=== PATIENT | male | born 1985 | race Caucasian/White ===

== ENCOUNTER 2016-08-26 01:40 | Emergency (ER) | payer SELFPAY ==
[~2016-08-26] VITALS: Ht 177.8 cm; Wt 54.4 kg
[~2016-08-26 01:40] MED LIST: BENA40TA7; HYDR-2598; METH500T6; MON10T
[2016-08-26] MEDS: LORazepam 2MG/ML-1ML VIAL IV ONE (02:30)
[2016-08-26 02:40] LABS: Basophils # (auto) 0 uL; Basophils % (auto) 0.4 % (0.0-2.0); Eosinophils # (auto) 0 uL; Hematocrit 39.9 % (41.0-53.0); Hemoglobin 13.4 g/dL (13.5-17.5); Lymphocytes # (auto) 1.9 uL; Lymphocytes % (auto) 16.5 % (10.0-50.0); Mean Corpuscular Hemoglobin 31.7 pg (28.0-32.0); Mean Corpuscular Hgb Conc. 33.6 g/dL (32.0-36.0); Mean Corpuscular Volume 94.5 fL (80.0-100.0); Mean Platelet Volume 7.3 fL (7.4-10.4); Monocytes # (auto) 0.9 uL; Neutrophils # (auto) 8.9 uL; Neutrophils % (auto) 75.1 % (37.0-80.0); Platelet Count (auto) 479 10^3/uL (140-450); Red Cell Distribution Width 13.5 % (11.6-16.0); White Blood Cell 11.8 10^3/uL (4.4-10.8)
[2016-08-26 02:46] LABS: Urine Bilirubin Negative (Negative); Urine Blood Negative /uL (Negative); Urine Color Yellow (Yellow); Urine Glucose Normal (Normal); Urine Hyaline Cast FEW /lpf (0 - 2); Urine Ketone Negative (Negative); Urine Mucus FEW (None Seen); Urine Nitrite Negative (Negative); Urine RBC 1 /hpf (0 - 3); Urine Squamous Epithelial Cell FEW /hpf (<5); Urine Urobilinogen Normal (Negative); Urine pH 5.5 (5.0-8.0)
[2016-08-26 02:57] LABS: Acetaminophen < 2.0 ug/mL (10-30); Albumin 3.7 g/dL (3.4-5.0); Anion Gap 14 (5-15); Blood Urea Nitrogen 10 mg/dL (7-18); Calcium 8.1 mg/dL (8.5-10.1); Carbon Dioxide 24 mmol/L (21-32); Chloride 105 mmol/L (98-107); Glucose 103 mg/dL (74-106); Potassium 3.1 mmol/L (3.5-5.1); Salicylate < 1.7 mg/dL (2.8-20.0); Sodium 143 mmol/L (136-145)
[2016-08-26 02:59] LABS: Aspartate Aminotransferase 36 U/L (15-37); BUN/Creatinine Ratio 10.3; GFR African American 115 mL/min; GFR Non-African American 95 mL/min
[2016-08-26] MEDS: SODIUM CHLORIDE 0.9% 1,000 ML IV ONE (02:59)
[2016-08-26 03:01] LABS: Alkaline Phosphatase 90 U/L (45-117); Bilirubin, Total 0.5 mg/dL (0.2-1.0); Total Protein 7.1 g/dL (6.4-8.2)
[2016-08-26] MEDS: QUEtiapine FUMARATE 100 MG TAB PO SCH (06:02)
[2016-08-26 06:35] VITALS: BP 142/72
[2016-08-26] MEDS: POTASSIUM CHL 10% (20 MEQ/15ML) ORAL SOLN PO ONE (10:13)
== END 2016-08-26 10:32 | disposition home or self-care (01) ==
LOC: ER 01:40 → EDBD 01:40 → ER 10:30
DX: F32.9 Major depressive disorder, single episode, unspecified (principal); F19.10 Other psychoactive substance abuse, uncomplicated; N39.0 Urinary tract infection, site not specified; F15.10 Other stimulant abuse, uncomplicated; E87.6 Hypokalemia; J44.9 Chronic obstructive pulmonary disease, unspecified; I10 Essential (primary) hypertension; R53.1 Weakness; G89.29 Other chronic pain; M54.9 Dorsalgia, unspecified; F17.210 Nicotine dependence, cigarettes, uncomplicated; F12.10 Cannabis abuse, uncomplicated
CPT/HCPCS: 36415; 80053; 80307; 80320; 80329; 81001; 85025; 93005; 96361; 96374; 99285; J2060; J7030

== ENCOUNTER 2016-08-26 17:12 | Emergency (ER) | payer SELFPAY ==
[~2016-08-26] VITALS: Ht 182.9 cm; Wt 77.1 kg
[2016-08-26 17:20] VITALS: BP 152/105
[2016-08-26] MEDS: LORazepam 0.5 MG TAB PO ONE (21:30)
[2016-08-26] MEDS: cloNIDine HCL 0.1 MG TAB PO ONE (21:31)
== END 2016-08-26 21:50 | disposition home or self-care (01) ==
LOC: EDBD 17:12 → ER 17:14
DX: F41.9 Anxiety disorder, unspecified (principal); J44.9 Chronic obstructive pulmonary disease, unspecified; I10 Essential (primary) hypertension; F17.210 Nicotine dependence, cigarettes, uncomplicated; F12.10 Cannabis abuse, uncomplicated; F15.10 Other stimulant abuse, uncomplicated

== ENCOUNTER 2018-09-20 20:09 | Emergency (ER) | payer MEDICAID ==
[~2018-09-20] VITALS: Ht 177.8 cm; Wt 73.1 kg
[2018-09-20] MEDS ORDERED: SODIUM CHLORIDE 0.9% 500 ML IV ONE (20:44)
[2018-09-20] MEDS ORDERED: KETOROLAC TROMETH 15 mg/ml 1ML VL IV ONE (20:45)
[2018-09-20] MEDS ORDERED: LORazepam 2MG/ML-1ML VIAL IV ONE (21:15)
[2018-09-20 21:28] LABS: Albumin 3.8 g/dL (3.4-5.0); Calcium 8.4 mg/dL (8.5-10.1); Potassium 3.3 mmol/L (3.5-5.1)
[2018-09-20 21:31] LABS: Acetaminophen < 2.0 ug/mL (10-30); Salicylate < 1.7 mg/dL (2.8-20.0)
[2018-09-20 21:32] LABS: BUN/Creatinine Ratio 11.4; Bilirubin, Total 0.2 mg/dL (0.2-1.0); Total Protein 6.6 g/dL (6.4-8.2)
[2018-09-20 21:33] LABS: Basophils # (auto) 0.1 uL; Basophils % (auto) 1.1 % (0.0-2.0); Eosinophils # (auto) 0.1 uL; Eosinophils % (auto) 2.4 % (0.0-7.0); Hematocrit 40.3 % (41.0-53.0); Hemoglobin 13.5 g/dL (13.5-17.5); Lymphocytes # (auto) 2.3 uL; Lymphocytes % (auto) 36.8 % (10.0-50.0); Mean Corpuscular Hemoglobin 31.4 pg (28.0-32.0); Mean Corpuscular Hgb Conc. 33.5 g/dL (32.0-36.0); Mean Corpuscular Volume 93.7 fL (80.0-100.0); Monocytes # (auto) 0.4 uL; Neutrophils # (auto) 3.4 uL; Neutrophils % (auto) 53.7 % (37.0-80.0); Nucleated Red Blood Cells % 0.1 %; Platelet Count (auto) 307 10^3/uL (140-450); Red Cell Distribution Width 13.4 % (11.8-14.3); White Blood Cell 6.2 10^3/uL (4.4-10.8)
[2018-09-20 22:19] LABS: Urine Bacteria NONE SEEN /hpf (None Seen); Urine Blood Negative /uL (Negative); Urine Specific Gravity 1.005 (1.001-1.035); Urine WBC 1 /hpf (0 - 3)
[2018-09-20 22:49] LABS: Amphetamine Screen, Urine NEGATIVE (NEGATIVE); Barbiturate Scree,Urine NEGATIVE (NEGATIVE); Benzodiazephine Screen, Urine NEGATIVE (NEGATIVE); Cannabinoid Screen, Urine NEGATIVE (NEGATIVE); Cocaine Screen, Urine NEGATIVE (NEGATIVE); Opiate Scree,Urine NEGATIVE (NEGATIVE); Phencyclidine Screen, Urine NEGATIVE (NEGATIVE)
[2018-09-21] MEDS ORDERED: LORazepam 2MG/ML-1ML VIAL IV ONE ×3 (01:00→13:00)
[2018-09-21] MEDS ORDERED: POTASSIUM CHL 10 Meq TABLET PO ONE (01:00)
[2018-09-21] MEDS ORDERED: OLANZapine 5 MG TAB PO ONE (07:30)
[2018-09-21] MEDS ORDERED: SODIUM CHLORIDE 0.9% 1,000 ML IV ONE (07:30)
[2018-09-21 12:00] VITALS: BP 135/92
[2018-09-21] MEDS ORDERED: QUEtiapine FUMARATE 25 MG TAB PO ONE (13:00)
== END 2018-09-21 15:12 | disposition left against medical advice (07) ==
LOC: ER 20:14
DX: R45.851 Suicidal ideations (principal); F41.9 Anxiety disorder, unspecified; F20.0 Paranoid schizophrenia; F32.9 Major depressive disorder, single episode, unspecified; M54.5 Low back pain; G89.29 Other chronic pain; J44.9 Chronic obstructive pulmonary disease, unspecified; I10 Essential (primary) hypertension; F17.210 Nicotine dependence, cigarettes, uncomplicated; F12.10 Cannabis abuse, uncomplicated; F15.10 Other stimulant abuse, uncomplicated
CPT/HCPCS: 36415; 71046; 72100; 80053; 80307; 80320; 80329; 81001; 84484; 85025; 93005; 94761; 96374; 96375; 96376; 99284; J1885; J2060; J7030; J7040

== ENCOUNTER 2018-11-03 21:16 | Emergency (ER) | payer MEDICAID ==
[~2018-11-03] VITALS: Ht 180.3 cm; Wt 77.1 kg
[2018-11-03 22:02] LABS: Basophils # (auto) 0.1 uL; Basophils % (auto) 1.1 % (0.0-2.0); Eosinophils # (auto) 0.1 uL; Eosinophils % (auto) 0.7 % (0.0-7.0); Hematocrit 46.2 % (41.0-53.0); Hemoglobin 15.7 g/dL (13.5-17.5); Lymphocytes # (auto) 2.6 uL; Lymphocytes % (auto) 32.8 % (10.0-50.0); Mean Corpuscular Hemoglobin 31.4 pg (28.0-32.0); Mean Corpuscular Hgb Conc. 33.9 g/dL (32.0-36.0); Mean Corpuscular Volume 92.6 fL (80.0-100.0); Monocytes # (auto) 0.8 uL; Monocytes % (auto) 9.9 % (0.0-12.0); Neutrophils # (auto) 4.4 uL; Neutrophils % (auto) 55.5 % (37.0-80.0); Nucleated Red Blood Cells % 0.1 %; Platelet Count (auto) 356 10^3/uL (140-450); Red Blood Cells 4.99 10^6/uL (4.5-5.90)
[2018-11-03 22:20] LABS: Albumin 4.1 g/dL (3.4-5.0); Calcium 8.8 mg/dL (8.5-10.1); Potassium 3.3 mmol/L (3.5-5.1)
[2018-11-03 22:24] LABS: BUN/Creatinine Ratio 11.6; Bilirubin, Total 0.4 mg/dL (0.2-1.0); Total Protein 7.4 g/dL (6.4-8.2)
[2018-11-04] MEDS ORDERED: LORazepam 0.5 MG TAB PO ONE (04:30)
[2018-11-04] MEDS ORDERED: ONDANSETRON HCL 4 MG/2 ML VIAL IV ONE (04:30)
[2018-11-04] MEDS ORDERED: SODIUM CHLORIDE 0.9% 1,000 ML IV ONE (04:30)
[2018-11-04] MEDS ORDERED: IOHEXOL 300 MG/ML 100ML BOTTLE IJ ONE (04:35)
[2018-11-04 05:29] LABS: Amylase 45 U/L (25-115); Blood Alcohol < 3.0 mg/dL (0-5); Lipase 116 U/L (73-393)
[2018-11-04 05:40] VITALS: BP 126/83
== END 2018-11-04 07:02 | disposition home or self-care (01) ==
LOC: EDBD 21:16 → ER 21:20
DX: I88.0 Nonspecific mesenteric lymphadenitis (principal); R10.9 Unspecified abdominal pain; R11.2 Nausea with vomiting, unspecified; F43.22 Adjustment disorder with anxiety; F20.89 Other schizophrenia; J44.9 Chronic obstructive pulmonary disease, unspecified; I10 Essential (primary) hypertension; F17.210 Nicotine dependence, cigarettes, uncomplicated; Z79.899 Other long term (current) drug therapy
CPT/HCPCS: 36415; 74177; 80053; 80320; 82150; 83605; 83690; 85025; 96361; 96374; 99284; J2405; J7030; Q9967

== ENCOUNTER 2018-11-18 15:48 | Emergency (ER) | payer MEDICAID ==
[~2018-11-18] VITALS: Ht 180.3 cm; Wt 70.3 kg
[2018-11-18 16:41] LABS: Basophils # (auto) 0.1 uL; Basophils % (auto) 0.8 % (0.0-2.0); Eosinophils # (auto) 0 uL; Eosinophils % (auto) 0.7 % (0.0-7.0); Hematocrit 45.7 % (41.0-53.0); Hemoglobin 15.6 g/dL (13.5-17.5); Lymphocytes # (auto) 2.8 uL; Lymphocytes % (auto) 40.1 % (10.0-50.0); Mean Corpuscular Hemoglobin 31.7 pg (28.0-32.0); Mean Corpuscular Hgb Conc. 34.1 g/dL (32.0-36.0); Monocytes # (auto) 0.3 uL; Monocytes % (auto) 4.3 % (0.0-12.0); Neutrophils # (auto) 3.8 uL; Neutrophils % (auto) 54.1 % (37.0-80.0); Nucleated Red Blood Cells % 0.1 %; Platelet Count (auto) 390 10^3/uL (140-450); Red Blood Cells 4.92 10^6/uL (4.5-5.90)
[2018-11-18 16:59] LABS: Acetaminophen < 2.0 ug/mL (10-30); Salicylate < 1.7 mg/dL (2.8-20.0)
[2018-11-18] MEDS ORDERED: SODIUM CHLORIDE 0.9% 1,000 ML IV ONE ×3 (16:59→22:00)
[2018-11-18] MEDS ORDERED: THIAMINE 100mg/ml INJ (200mg/2ml VIAL) IV ONE (17:00)
[2018-11-18 17:01] LABS: Alkaline Phosphatase 74 U/L (45-117); Aspartate Aminotransferase 14 U/L (15-37); Bilirubin, Total 0.3 mg/dL (0.2-1.0); GFR African American 116 mL/min; GFR Non-African American 96 mL/min; Total Protein 7.2 g/dL (6.4-8.2)
[2018-11-18 17:02] LABS: Anion Gap 12 (5-15); Carbon Dioxide 19 mmol/L (21-32); Chloride 112 mmol/L (98-107); Glucose 97 mg/dL (74-106); Potassium 3.7 mmol/L (3.5-5.1); Sodium 143 mmol/L (136-145)
[2018-11-18 17:03] LABS: Alanine Aminotransferase 23 U/L (16-61); Albumin 4.1 g/dL (3.4-5.0); BUN/Creatinine Ratio 7.4; Blood Urea Nitrogen 7 mg/dL (7-18); Calcium 8.4 mg/dL (8.5-10.1); Magnesium 2.4 mg/dL (1.6-2.6)
[2018-11-18] MEDS ORDERED: LORazepam 2MG/ML-1ML VIAL IV ONE (20:00)
[2018-11-19 00:48] LABS: Urine Bacteria NONE SEEN /hpf (None Seen); Urine Blood Negative /uL (Negative); Urine Specific Gravity 1.008 (1.001-1.035); Urine WBC 1 /hpf (0 - 3)
[2018-11-19 00:50] LABS: Amphetamine Screen, Urine NEGATIVE (NEGATIVE); Barbiturate Scree,Urine NEGATIVE (NEGATIVE); Benzodiazephine Screen, Urine NEGATIVE (NEGATIVE); Cannabinoid Screen, Urine NEGATIVE (NEGATIVE); Cocaine Screen, Urine NEGATIVE (NEGATIVE); Opiate Scree,Urine NEGATIVE (NEGATIVE); Phencyclidine Screen, Urine NEGATIVE (NEGATIVE)
[2018-11-19] MEDS ORDERED: OLANZapine 5 MG TAB PO ONE (10:15)
[2018-11-19] MEDS ORDERED: ALPRAZolam 0.5 MG TAB PO ONE (10:15)
[2018-11-19] MEDS ORDERED: BENAZEPRIL HCL 10 MG TAB PO ONE (11:00)
[2018-11-19] MEDS ORDERED: HYDROcodone-ACET 5/325MG TAB PO ONE (15:30)
[2018-11-20] MEDS ORDERED: ALPRAZolam 0.5 MG TAB PO SCH (10:00)
[2018-11-20] MEDS: OLANZapine 5 MG TAB PO SCH ×2 (10:23→22:24)
[2018-11-20] MEDS: ALPRAZolam 0.5 MG TAB PO PRN (18:01)
[2018-11-21] MEDS ORDERED: ACETAMINOPHEN 325 MG TAB PO ONE (08:00)
[2018-11-21] MEDS: ALPRAZolam 0.5 MG TAB PO PRN ×2 (08:16→15:54)
[2018-11-21] MEDS: OLANZapine 5 MG TAB PO SCH ×2 (10:09→21:07)
[2018-11-21] MEDS ORDERED: HYDROcodone-ACET 5/325MG TAB PO ONE (21:00)
[2018-11-22 08:12] VITALS: BP 118/64
== END 2018-11-22 08:54 | disposition home or self-care (01) ==
LOC: ER 15:48 → EDBD 15:48 → ER 11-22 08:54
DX: F10.129 Alcohol abuse with intoxication, unspecified (principal); F17.210 Nicotine dependence, cigarettes, uncomplicated; F12.10 Cannabis abuse, uncomplicated; F15.10 Other stimulant abuse, uncomplicated; J44.9 Chronic obstructive pulmonary disease, unspecified; I10 Essential (primary) hypertension; Y90.9 Presence of alcohol in blood, level not specified
CPT/HCPCS: 36415; 80053; 80307; 80320; 80329; 81001; 83735; 85025; 93005; 96374; 96375; 99284; J2060; J3411; J7030

== ENCOUNTER 2019-11-25 13:04 | Emergency (ER) | payer MEDICAID ==
[~2019-11-25] VITALS: Ht 182.9 cm; Wt 72.6 kg
[~2019-11-25 13:04] MED LIST changes: +METH500T22; -METH500T6
[2019-11-25 15:26] LABS: Basophils # (auto) 0.1 10 ^3/uL (0-0.2); Basophils % (auto) 0.9 % (0.0-2.0); Eosinophils # (auto) 0 10 ^3/uL (0-0.8); Eosinophils % (auto) 0.2 % (0.0-7.0); Hematocrit 47.5 % (41.0-53.0); Hemoglobin 15.9 g/dL (13.5-17.5); Lymphocytes # (auto) 2.2 10 ^3/uL (0.4-5.4); Lymphocytes % (auto) 28.3 % (10.0-50.0); Mean Corpuscular Hemoglobin 32.5 pg (28.0-32.0); Mean Corpuscular Hgb Conc. 33.5 g/dL (32.0-36.0); Mean Corpuscular Volume 97.1 fL (80.0-100.0); Monocytes # (auto) 0.6 10 ^3/uL (0-1.3); Monocytes % (auto) 7.2 % (0.0-12.0); Neutrophils # (auto) 4.9 10 ^3/uL (1.6-8.6); Neutrophils % (auto) 63.4 % (37.0-80.0); Nucleated Red Blood Cells % 0.1 %; Platelet Count (auto) 324 10^3/uL (140-450); Red Cell Distribution Width 13.8 % (11.8-14.3); White Blood Cell 7.7 10^3/uL (4.4-10.8)
[2019-11-25 15:41] LABS: Albumin 4.1 g/dL (3.4-5.0); Anion Gap 11 (5-15); Blood Urea Nitrogen 9 mg/dL (7-18); Calcium 8.7 mg/dL (8.5-10.1); Carbon Dioxide 20 mmol/L (21-32); Chloride 108 mmol/L (98-107); Glucose 80 mg/dL (74-106); Magnesium 2.2 mg/dL (1.6-2.6); Potassium 3.8 mmol/L (3.5-5.1); Sodium 139 mmol/L (136-145)
[2019-11-25 15:42] LABS: Acetaminophen < 2.0 ug/mL (10-30); Salicylate < 1.7 mg/dL (2.8-20.0)
[2019-11-25 15:48] LABS: Alanine Aminotransferase 37 U/L (16-61); Alkaline Phosphatase 70 U/L (45-117); Aspartate Aminotransferase 16 U/L (15-37); BUN/Creatinine Ratio 8.7; Bilirubin, Total 0.4 mg/dL (0.2-1.0); GFR African American 104 mL/min; GFR Non-African American 86 mL/min; Total Protein 7.1 g/dL (6.4-8.2)
[2019-11-25] MEDS ORDERED: LORazepam 0.5 MG TAB PO ONE (16:00)
[2019-11-25 16:27] LABS: Amphetamine Screen, Urine NEGATIVE (NEGATIVE); Barbiturate Scree,Urine NEGATIVE (NEGATIVE); Benzodiazephine Screen, Urine NEGATIVE (NEGATIVE); Cannabinoid Screen, Urine NEGATIVE (NEGATIVE); Cocaine Screen, Urine NEGATIVE (NEGATIVE); Opiate Scree,Urine NEGATIVE (NEGATIVE); Phencyclidine Screen, Urine NEGATIVE (NEGATIVE)
[2019-11-25 16:36] LABS: Urine Bacteria NONE SEEN /hpf (None Seen); Urine Blood Negative /uL (Negative); Urine Mucus FEW (None Seen); Urine Specific Gravity 1.013 (1.001-1.035); Urine WBC 3 /hpf (0 - 3)
[2019-11-26] MEDS ORDERED: LORazepam 0.5 MG TAB PO ONE ×2 (01:45→09:30)
[2019-11-26] MEDS ORDERED: LORazepam 0.5 MG TAB ONE ×2 (01:56→08:48)
[2019-11-26] MEDS ORDERED: IBUPROFEN 800 MG TAB PO ONE (13:15)
[2019-11-26] MEDS ORDERED: LORazepam 0.5 MG TAB PO SCH ×2 (14:00→22:00)
[2019-11-26 15:17] VITALS: BP 127/72
== END 2019-11-26 11:12 | disposition short-term general hospital (02) ==
LOC: EDBD 13:04 → ER 13:04
DX: R45.851 Suicidal ideations (principal); F20.0 Paranoid schizophrenia; Z20.828 Contact with and (suspected) exposure to other viral communicable diseases
CPT/HCPCS: 36415; 71046; 80053; 80307; 80320; 80329; 81001; 83735; 84443; 84484; 85025; 87426; 93005

== ENCOUNTER 2019-12-01 19:37 | Emergency (ER) | payer MEDICAID ==
[~2019-12-01] VITALS: Ht 165.1 cm; Wt 63.5 kg
[2019-12-01 20:48] LABS: Basophils # (auto) 0.1 10 ^3/uL (0-0.2); Basophils % (auto) 1.2 % (0.0-2.0); Eosinophils # (auto) 0.2 10 ^3/uL (0-0.8); Hematocrit 45.8 % (41.0-53.0); Hemoglobin 15.8 g/dL (13.5-17.5); Lymphocytes # (auto) 4.5 10 ^3/uL (0.4-5.4); Lymphocytes % (auto) 52.3 % (10.0-50.0); Mean Corpuscular Hemoglobin 33.2 pg (28.0-32.0); Mean Corpuscular Hgb Conc. 34.5 g/dL (32.0-36.0); Mean Corpuscular Volume 96.4 fL (80.0-100.0); Monocytes # (auto) 0.6 10 ^3/uL (0-1.3); Monocytes % (auto) 7.4 % (0.0-12.0); Neutrophils # (auto) 3.2 10 ^3/uL (1.6-8.6); Neutrophils % (auto) 37.1 % (37.0-80.0); Nucleated Red Blood Cells % 0.1 %; Platelet Count (auto) 401 10^3/uL (140-450); Red Blood Cells 4.75 10^6/uL (4.5-5.90); White Blood Cell 8.6 10^3/uL (4.4-10.8)
[2019-12-01 21:00] LABS: Urine Bacteria NONE SEEN /hpf (None Seen); Urine Blood Negative /uL (Negative); Urine WBC <1 /hpf (0 - 3)
[2019-12-01 21:03] LABS: Albumin 4.1 g/dL (3.4-5.0); Calcium 8.6 mg/dL (8.5-10.1); Potassium 3.1 mmol/L (3.5-5.1)
[2019-12-01 21:05] LABS: Alcohol, Urine < 3.0 mg/dL (0-10); Amphetamine Screen, Urine NEGATIVE (NEGATIVE); Barbiturate Scree,Urine NEGATIVE (NEGATIVE); Benzodiazephine Screen, Urine POSITIVE (NEGATIVE); Cannabinoid Screen, Urine NEGATIVE (NEGATIVE); Cocaine Screen, Urine NEGATIVE (NEGATIVE); Opiate Scree,Urine POSITIVE (NEGATIVE); Phencyclidine Screen, Urine NEGATIVE (NEGATIVE)
[2019-12-01 21:06] LABS: BUN/Creatinine Ratio 6.6; Bilirubin, Total 0.4 mg/dL (0.2-1.0); Total Protein 6.9 g/dL (6.4-8.2)
[2019-12-01 21:07] LABS: Acetaminophen 7.1 ug/mL (10-30); Salicylate < 1.7 mg/dL (2.8-20.0)
[2019-12-01] MEDS ORDERED: LORazepam 0.5 MG TAB PO ONE (21:30)
[2019-12-02] MEDS ORDERED: LORazepam 0.5 MG TAB PO ONE (09:45)
[2019-12-02] MEDS ORDERED: POTASSIUM EFFERVESENT TAB 25 MEQ PO ONE (17:45)
[2019-12-03] MEDS ORDERED: LORazepam 0.5 MG TAB PO ONE (08:30)
[2019-12-03] MEDS ORDERED: CARISOPRODOL 350 MG TAB PO PRN (09:15)
[2019-12-03] MEDS: SERTRALINE HCL 50 MG TAB PO SCH (09:29)
[2019-12-03] MEDS: OLANZapine 5 MG TAB PO SCH (09:29)
[2019-12-03] MEDS: traZODone HCL 50 MG TAB PO SCH (22:52)
[2019-12-04] MEDS: SERTRALINE HCL 50 MG TAB PO SCH (11:00)
[2019-12-04] MEDS: OLANZapine 5 MG TAB PO SCH (11:00)
[2019-12-04 19:18] VITALS: BP 135/77
[2019-12-04] MEDS: traZODone HCL 50 MG TAB PO SCH (21:30)
== END 2019-12-04 23:31 | disposition home or self-care (01) ==
LOC: EDBD 19:37 → ER 19:41
DX: R45.851 Suicidal ideations (principal); F20.0 Paranoid schizophrenia; I10 Essential (primary) hypertension; F17.210 Nicotine dependence, cigarettes, uncomplicated; F12.10 Cannabis abuse, uncomplicated; Z59.0 Homelessness; Z20.828 Contact with and (suspected) exposure to other viral communicable diseases
CPT/HCPCS: 36415; 80053; 80307; 80320; 80329; 81001; 85025; 87426; 99285; C9803; U0003

== ENCOUNTER 2019-12-16 20:31 | Emergency (ER) | payer MEDICAID ==
[~2019-12-16] VITALS: Ht 180.3 cm; Wt 77.1 kg
[2019-12-17 01:10] VITALS: BP 129/89
[2019-12-17 01:31] LABS: Basophils # (auto) 0.1 10 ^3/uL (0-0.2); Basophils % (auto) 0.8 % (0.0-2.0); Eosinophils # (auto) 0.1 10 ^3/uL (0-0.8); Eosinophils % (auto) 1.3 % (0.0-7.0); Hematocrit 41.7 % (41.0-53.0); Hemoglobin 14.4 g/dL (13.5-17.5); Lymphocytes # (auto) 3.9 10 ^3/uL (0.4-5.4); Lymphocytes % (auto) 43.5 % (10.0-50.0); Mean Corpuscular Hgb Conc. 34.5 g/dL (32.0-36.0); Mean Corpuscular Volume 95.6 fL (80.0-100.0); Monocytes # (auto) 0.6 10 ^3/uL (0-1.3); Monocytes % (auto) 7.2 % (0.0-12.0); Neutrophils # (auto) 4.2 10 ^3/uL (1.6-8.6); Neutrophils % (auto) 47.2 % (37.0-80.0); Platelet Count (auto) 307 10^3/uL (140-450); Red Blood Cells 4.36 10^6/uL (4.5-5.90); White Blood Cell 8.9 10^3/uL (4.4-10.8)
[2019-12-17 01:39] LABS: INR 1.2 (0.9-1.15); Partial Thromboplastin Time 24.9 sec (23.0-31.2)
[2019-12-17 01:44] LABS: Salicylate 2.7 mg/dL (2.8-20.0)
[2019-12-17 01:45] LABS: Alanine Aminotransferase 20 U/L (16-61); Albumin 3.6 g/dL (3.4-5.0); Anion Gap 7 (5-15); Aspartate Aminotransferase 8 U/L (15-37); BUN/Creatinine Ratio 5.7; Blood Urea Nitrogen 5 mg/dL (7-18); Calcium 8.6 mg/dL (8.5-10.1); Carbon Dioxide 25 mmol/L (21-32); Chloride 109 mmol/L (98-107); GFR African American 126 mL/min; GFR Non-African American 104 mL/min; Glucose 88 mg/dL (74-106); Potassium 3.4 mmol/L (3.5-5.1); Sodium 141 mmol/L (136-145)
[2019-12-17 01:50] LABS: Alkaline Phosphatase 67 U/L (45-117); Bilirubin, Total 0.4 mg/dL (0.2-1.0); Total Protein 6.1 g/dL (6.4-8.2)
[2019-12-17 01:52] LABS: Acetaminophen < 2.0 ug/mL (10-30)
[2019-12-17] MEDS ORDERED: LORazepam 0.5 MG TAB PO ONE (04:00)
== END 2019-12-17 04:29 | disposition home or self-care (01) ==
LOC: ER 20:31 → EDBD 20:31 → ER 12-17 04:29
DX: R07.2 Precordial pain (principal); F41.9 Anxiety disorder, unspecified; F17.210 Nicotine dependence, cigarettes, uncomplicated; I10 Essential (primary) hypertension; F31.9 Bipolar disorder, unspecified; F20.9 Schizophrenia, unspecified; Z79.899 Other long term (current) drug therapy
CPT/HCPCS: 36415; 80053; 80329; 83880; 84484; 85025; 85610; 85730; 93005

== ENCOUNTER 2019-12-23 19:54 | Emergency (ER) | payer MEDICAID ==
[~2019-12-23] VITALS: Ht 185.4 cm; Wt 81.6 kg
[2019-12-23] MEDS ORDERED: KETOROLAC TROMETH 60MG/2ML VIAL IM ONE (22:45)
[2019-12-24 00:01] LABS: Amphetamine Screen, Urine NEGATIVE (NEGATIVE); Barbiturate Scree,Urine NEGATIVE (NEGATIVE); Benzodiazephine Screen, Urine NEGATIVE (NEGATIVE); Cannabinoid Screen, Urine NEGATIVE (NEGATIVE); Cocaine Screen, Urine NEGATIVE (NEGATIVE); Opiate Scree,Urine NEGATIVE (NEGATIVE); Phencyclidine Screen, Urine NEGATIVE (NEGATIVE)
[2019-12-24 00:04] LABS: Alcohol, Urine < 3.0 mg/dL (0-10)
[2019-12-24] MEDS ORDERED: DexAMETHasone SOD PHOS 10MG/1ML VIAL INJ IV ONE (07:45)
[2019-12-24 08:32] VITALS: BP 130/81
== END 2019-12-24 09:41 | disposition home or self-care (01) ==
LOC: ER 19:54
DX: M54.16 Radiculopathy, lumbar region (principal); M79.18 Myalgia, other site; F41.9 Anxiety disorder, unspecified; G89.29 Other chronic pain; J45.909 Unspecified asthma, uncomplicated; I10 Essential (primary) hypertension; F31.9 Bipolar disorder, unspecified; F20.9 Schizophrenia, unspecified; F17.210 Nicotine dependence, cigarettes, uncomplicated; Z76.5 Malingerer [conscious simulation]; Z79.899 Other long term (current) drug therapy; Z59.0 Homelessness
CPT/HCPCS: 72100; 72131; 80307; 96372; 96374; 99285; J1100; J1885

== ENCOUNTER 2020-01-18 22:15 | Emergency (ER) | payer MEDICAID ==
[~2020-01-18] VITALS: Ht 185.4 cm; Wt 83.9 kg
[2020-01-18 22:52] LABS: Basophils # (auto) 0.1 10 ^3/uL (0-0.2); Basophils % (auto) 0.7 % (0.0-2.0); Eosinophils # (auto) 0 10 ^3/uL (0-0.8); Eosinophils % (auto) 0.2 % (0.0-7.0); Hematocrit 44.6 % (41.0-53.0); Hemoglobin 15.1 g/dL (13.5-17.5); Lymphocytes # (auto) 2.4 10 ^3/uL (0.4-5.4); Lymphocytes % (auto) 17.9 % (10.0-50.0); Mean Corpuscular Hemoglobin 32.1 pg (28.0-32.0); Mean Corpuscular Hgb Conc. 33.9 g/dL (32.0-36.0); Mean Corpuscular Volume 94.8 fL (80.0-100.0); Monocytes # (auto) 1.3 10 ^3/uL (0-1.3); Monocytes % (auto) 9.5 % (0.0-12.0); Neutrophils # (auto) 9.5 10 ^3/uL (1.6-8.6); Neutrophils % (auto) 71.7 % (37.0-80.0); Nucleated Red Blood Cells % 0.2 %; Platelet Count (auto) 431 10^3/uL (140-450); Red Blood Cells 4.71 10^6/uL (4.5-5.90); Red Cell Distribution Width 14.3 % (11.8-14.3); White Blood Cell 13.3 10^3/uL (4.4-10.8)
[2020-01-18 23:10] LABS: Alanine Aminotransferase 57 U/L (16-61); Albumin 4.2 g/dL (3.4-5.0); Anion Gap 10 (5-15); Aspartate Aminotransferase 26 U/L (15-37); BUN/Creatinine Ratio 9.9; Blood Urea Nitrogen 10 mg/dL (7-18); Calcium 8.6 mg/dL (8.5-10.1); Carbon Dioxide 22 mmol/L (21-32); Chloride 104 mmol/L (98-107); GFR African American 107 mL/min; GFR Non-African American 89 mL/min; Glucose 108 mg/dL (74-106); INR 1.17 (0.9-1.15); Partial Thromboplastin Time 26.9 sec (23.0-31.2); Potassium 3.1 mmol/L (3.5-5.1); Sodium 136 mmol/L (136-145)
[2020-01-18 23:13] LABS: Alcohol, Urine < 3.0 mg/dL (0-10); Amphetamine Screen, Urine POSITIVE (NEGATIVE); Barbiturate Scree,Urine NEGATIVE (NEGATIVE); Benzodiazephine Screen, Urine NEGATIVE (NEGATIVE); Cocaine Screen, Urine NEGATIVE (NEGATIVE); Opiate Scree,Urine POSITIVE (NEGATIVE); Phencyclidine Screen, Urine NEGATIVE (NEGATIVE)
[2020-01-18 23:15] LABS: Alkaline Phosphatase 84 U/L (45-117); Bilirubin, Total 0.6 mg/dL (0.2-1.0); Total Protein 7.4 g/dL (6.4-8.2)
[2020-01-18 23:20] LABS: Cannabinoid Screen, Urine POSITIVE (NEGATIVE)
[2020-01-18] MEDS ORDERED: LORazepam 0.5 MG TAB PO ONE (23:30)
[2020-01-18 23:31] VITALS: BP 151/103
[2020-01-19] MEDS ORDERED: POTASSIUM EFFERVESENT TAB 25 MEQ PO ONE
== END 2020-01-19 01:04 | disposition home or self-care (01) ==
LOC: EDBD 22:15 → ER 22:15
DX: F41.9 Anxiety disorder, unspecified (principal); F15.90 Other stimulant use, unspecified, uncomplicated; F12.10 Cannabis abuse, uncomplicated; I10 Essential (primary) hypertension; F17.210 Nicotine dependence, cigarettes, uncomplicated
CPT/HCPCS: 36415; 71046; 80053; 80307; 84484; 85025; 85610; 85730; 93005

== ENCOUNTER 2020-04-13 20:02 | Emergency (ER) | payer MEDICAID ==
[~2020-04-13] VITALS: Ht 188 cm; Wt 81.6 kg
[~2020-04-13 20:02] MED LIST changes: -BENA40TA7; +BENA40TA8
[2020-04-13 21:10] LABS: Basophils # (auto) 0 10 ^3/uL (0-0.2); Basophils % (auto) 0.2 % (0.0-2.0); Eosinophils # (auto) 0 10 ^3/uL (0-0.8); Eosinophils % (auto) 0.1 % (0.0-7.0); Hematocrit 43.7 % (41.0-53.0); Hemoglobin 14.9 g/dL (13.5-17.5); Lymphocytes # (auto) 1.6 10 ^3/uL (0.4-5.4); Lymphocytes % (auto) 12.4 % (10.0-50.0); Mean Corpuscular Hemoglobin 32.3 pg (28.0-32.0); Mean Corpuscular Volume 95.1 fL (80.0-100.0); Monocytes # (auto) 1.2 10 ^3/uL (0-1.3); Monocytes % (auto) 9.6 % (0.0-12.0); Neutrophils # (auto) 9.9 10 ^3/uL (1.6-8.6); Neutrophils % (auto) 77.7 % (37.0-80.0); Platelet Count (auto) 320 10^3/uL (140-450); Red Cell Distribution Width 13.4 % (11.8-14.3); White Blood Cell 12.7 10^3/uL (4.4-10.8)
[2020-04-13 21:27] LABS: Blood Urea Nitrogen 10 mg/dL (7-18); Calcium 8.2 mg/dL (8.5-10.1); Chloride 103 mmol/L (98-107); Potassium 3.6 mmol/L (3.5-5.1); Sodium 136 mmol/L (136-145)
[2020-04-13 21:35] LABS: Alanine Aminotransferase 70 U/L (16-61); Albumin 3.7 g/dL (3.4-5.0); Alkaline Phosphatase 71 U/L (45-117); Anion Gap 8 (5-15); Aspartate Aminotransferase 43 U/L (15-37); BUN/Creatinine Ratio 8.8; Bilirubin, Total 0.3 mg/dL (0.2-1.0); Carbon Dioxide 25 mmol/L (21-32); GFR African American 93 mL/min; GFR Non-African American 77 mL/min; Glucose 163 mg/dL (74-106); Total Protein 7.1 g/dL (6.4-8.2)
[2020-04-13] MEDS ORDERED: LORazepam 0.5 MG TAB PO ONE (22:00)
[2020-04-13 22:34] LABS: Urine Bacteria NONE SEEN /hpf (None Seen); Urine Blood Negative /uL (Negative); Urine Specific Gravity 1.012 (1.001-1.035); Urine WBC 1 /hpf (0 - 3)
[2020-04-13 22:51] LABS: Alcohol, Urine < 3.0 mg/dL (0-10); Amphetamine Screen, Urine NEGATIVE (NEGATIVE); Barbiturate Scree,Urine NEGATIVE (NEGATIVE); Benzodiazephine Screen, Urine NEGATIVE (NEGATIVE); Cannabinoid Screen, Urine NEGATIVE (NEGATIVE); Cocaine Screen, Urine NEGATIVE (NEGATIVE); Opiate Scree,Urine POSITIVE (NEGATIVE); Phencyclidine Screen, Urine NEGATIVE (NEGATIVE)
[2020-04-13] MEDS ORDERED: LORazepam 0.5 MG TAB ONE (23:42)
[2020-04-14] MEDS ORDERED: LORazepam 2MG/ML-1ML VIAL IV ONE (01:30)
[2020-04-14] MEDS ORDERED: SODIUM CHLORIDE 0.9% 1,000 ML IV ONE (01:30)
[2020-04-14 03:35] VITALS: BP 149/100
== END 2020-04-14 03:55 | disposition home or self-care (01) ==
LOC: EDBD 20:02 → ER 20:05
DX: F41.0 Panic disorder [episodic paroxysmal anxiety] (principal); F20.9 Schizophrenia, unspecified; R03.0 Elevated blood-pressure reading, without diagnosis of hypertension; F17.210 Nicotine dependence, cigarettes, uncomplicated
CPT/HCPCS: 36415; 71045; 80053; 80307; 81001; 84484; 85025; 93005; 96361; 96374; 99285; J2060

== ENCOUNTER 2022-10-17 11:32 | Emergency (ER) | payer MEDICAID ==
[~2022-10-17] VITALS: Ht 185.4 cm; Wt 82.5 kg
[~2022-10-17 11:32] MED LIST changes: +BENA40TA70; -BENA40TA8; +METH-1181; -METH500T22
[2022-10-17 11:39] VITALS: BP 156/91
[2022-10-17 12:34] LABS: Basophils # (auto) 0 10 ^3/uL (0-0.2); Basophils % (auto) 0.4 % (0.0-2.0); Eosinophils # (auto) 0.1 10 ^3/uL (0-0.8); Hematocrit 45.3 % (41.0-53.0); Hemoglobin 15.2 g/dL (13.5-17.5); Lymphocytes # (auto) 2.2 10 ^3/uL (0.4-5.4); Lymphocytes % (auto) 36.5 % (10.0-50.0); Mean Corpuscular Hemoglobin 32.1 pg (28.0-32.0); Mean Corpuscular Hgb Conc. 33.5 g/dL (32.0-36.0); Mean Corpuscular Volume 95.7 fL (80.0-100.0); Monocytes # (auto) 0.5 10 ^3/uL (0-1.3); Monocytes % (auto) 8.6 % (0.0-12.0); Neutrophils # (auto) 3.3 10 ^3/uL (1.6-8.6); Neutrophils % (auto) 53.5 % (37.0-80.0); Nucleated Red Blood Cells % 0.2 %; Red Blood Cells 4.73 10^6/uL (4.5-5.90); Red Cell Distribution Width 14.1 % (11.8-14.3); White Blood Cell 6.1 10^3/uL (4.4-10.8)
[2022-10-17 12:53] LABS: Albumin 3.7 g/dL (3.4-5.0); Anion Gap 9 (5-15); Blood Alcohol < 3.0 mg/dL (<10); Blood Urea Nitrogen 9 mg/dL (7-18); Calcium 8.8 mg/dL (8.5-10.1); Carbon Dioxide 21 mmol/L (21-32); Chloride 111 mmol/L (98-107); Glucose 201 mg/dL (74-106); Potassium 3.4 mmol/L (3.5-5.1); Sodium 141 mmol/L (136-145)
[2022-10-17 12:54] LABS: Acetaminophen < 2.0 ug/mL (10-30); Salicylate < 1.7 mg/dL (2.8-20.0)
[2022-10-17 12:56] LABS: Alanine Aminotransferase 29 U/L (16-61); Alkaline Phosphatase 66 U/L (45-117); Aspartate Aminotransferase 18 U/L (15-37); Bilirubin, Total 0.4 mg/dL (0.2-1.0); GFR African American 80 mL/min; GFR Non-African American 66 mL/min; Total Protein 6.9 g/dL (6.4-8.2)
[2022-10-17 13:25] LABS: Alcohol, Urine < 3.0 mg/dL (0-10); Amphetamine Screen, Urine NEGATIVE (NEGATIVE); Barbiturate Scree,Urine NEGATIVE (NEGATIVE); Benzodiazephine Screen, Urine NEGATIVE (NEGATIVE); Cannabinoid Screen, Urine NEGATIVE (NEGATIVE); Cocaine Screen, Urine NEGATIVE (NEGATIVE); Opiate Scree,Urine NEGATIVE (NEGATIVE); Phencyclidine Screen, Urine NEGATIVE (NEGATIVE)
[2022-10-17 15:35] VITALS: RESP 18; O2SAT 97
[2022-10-17] MEDS ORDERED: hydrOXYzine 25 MG TAB or CAP PO PRN (16:45)
[2022-10-17 21:59] VITALS: PULSE 82; RESP 20; O2SAT 99
[2022-10-17] MEDS ORDERED: QUEtiapine FUMARATE 25 MG TAB PO SCH (22:00)
== END 2022-10-18 00:12 | disposition left against medical advice (07) ==
LOC: ER 11:32
DX: F20.9 Schizophrenia, unspecified (principal); F29 Unspecified psychosis not due to a substance or known physiological condition; I10 Essential (primary) hypertension; F17.210 Nicotine dependence, cigarettes, uncomplicated; Z59.00 Homelessness unspecified
CPT/HCPCS: 36415; 80053; 80307; 80320; 80329; 85025

== ENCOUNTER 2023-01-31 20:57 | Emergency (ER) | payer MEDICAID ==
[~2023-01-31] VITALS: Ht 185.4 cm; Wt 87.0 kg
[2023-01-31 21:47] LABS: Basophils # (auto) 0.1 10 ^3/uL (0-0.2); Basophils % (auto) 0.7 % (0.0-2.0); Eosinophils # (auto) 0 10 ^3/uL (0-0.8); Eosinophils % (auto) 0.5 % (0.0-7.0); Hematocrit 44.2 % (41.0-53.0); Hemoglobin 14.9 g/dL (13.5-17.5); Lymphocytes # (auto) 3.3 10 ^3/uL (0.4-5.4); Lymphocytes % (auto) 34.7 % (10.0-50.0); Mean Corpuscular Hemoglobin 32.1 pg (28.0-32.0); Mean Corpuscular Hgb Conc. 33.7 g/dL (32.0-36.0); Mean Corpuscular Volume 95.1 fL (80.0-100.0); Monocytes % (auto) 10.8 % (0.0-12.0); Neutrophils # (auto) 5.1 10 ^3/uL (1.6-8.6); Neutrophils % (auto) 53.3 % (37.0-80.0); Red Blood Cells 4.65 10^6/uL (4.5-5.90); Red Cell Distribution Width 13.6 % (11.8-14.3); White Blood Cell 9.6 10^3/uL (4.4-10.8)
[2023-01-31 22:07] LABS: Alanine Aminotransferase 23 U/L (7-40); Albumin 4.7 g/dL (3.2-4.8); Alkaline Phosphatase 65 U/L (46-116); Anion Gap 13 (5-15); Aspartate Aminotransferase 26 U/L (13-40); Bilirubin, Total 0.4 mg/dL (0.2-1.0); Blood Urea Nitrogen 8 mg/dL (9-23); Calcium 9.2 mg/dL (8.7-10.4); Carbon Dioxide 21 mmol/L (20-30); Chloride 105 mmol/L (98-107); Glucose 181 mg/dL (74-106); Sodium 139 mmol/L (136-145)
[2023-01-31 22:09] LABS: Potassium 2.9 mmol/L (3.5-5.1)
[2023-01-31] MEDS ORDERED: LORazepam 0.5 MG TAB PO ONE (23:00)
[2023-01-31 23:22] LABS: Acetaminophen < 2.0 UG/ML (10.0-20.0)
[2023-01-31 23:24] LABS: Salicylate < 3.0 mg/dL (2.8-20.0)
[2023-02-01] MEDS ORDERED: POTASSIUM CHL 20 Meq TABLET PO ONE
[2023-02-01 01:01] LABS: Amphetamine Screen, Urine Neg (NEGATIVE); Barbiturate Scree,Urine Neg (NEGATIVE); Benzodiazephine Screen, Urine Neg (NEGATIVE); Cannabinoid Screen, Urine Neg (NEGATIVE); Cocaine Screen, Urine Neg (NEGATIVE); Opiate Scree,Urine Neg (NEGATIVE); Phencyclidine Screen, Urine Neg (NEGATIVE); Urine Bacteria NONE SEEN /hpf (None Seen); Urine Blood Negative /uL (Negative); Urine Clarity Clear (Clear); Urine Color Colorless (Yellow); Urine Protein, UAD Negative (Negative); Urine Specific Gravity 1.011 (1.001-1.035); Urine Urobilinogen Normal (Negative); Urine WBC 1 /hpf (0 - 3)
[2023-02-01] MEDS ORDERED: diphenhdrAMINE HCL 50 MG/1 ML VL IM ONE (02:00)
[2023-02-01] MEDS ORDERED: LORazepam 2MG/ML-1ML VIAL IM ONE (06:45)
[2023-02-01 07:30] VITALS: PULSE 100; RESP 18; O2SAT 99
[2023-02-01 09:51] VITALS: BP 145/86; PULSE 96; RESP 17; TEMP 97.6; O2SAT 99
== END 2023-02-01 10:30 | disposition left against medical advice (07) ==
LOC: ER 20:57
DX: R44.0 Auditory hallucinations (principal); R44.1 Visual hallucinations; F41.9 Anxiety disorder, unspecified; F31.9 Bipolar disorder, unspecified; Z98.890 Other specified postprocedural states; Z88.8 Allergy status to other drugs, medicaments and biological substances
CPT/HCPCS: 36415; 80053; 80307; 80320; 80329; 81001; 85025; 96372; 99284; J1200; J2060

== ENCOUNTER 2023-12-28 11:41 | Emergency (ER) | payer MEDICAID ==
[~2023-12-28] VITALS: Ht 185.4 cm; Wt 71.9 kg
[~2023-12-28 11:41] MED LIST changes: -BENA40TA70; +BENA40TA71
[2023-12-28 13:48] VITALS: BP 134/78; PULSE 105; RESP 17; TEMP 98.1; O2SAT 95
== END 2023-12-28 13:50 | disposition home or self-care (01) ==
LOC: ER 11:41
DX: F41.9 Anxiety disorder, unspecified (principal); I10 Essential (primary) hypertension; F20.9 Schizophrenia, unspecified; F17.210 Nicotine dependence, cigarettes, uncomplicated

== ENCOUNTER 2024-01-06 10:59 | Emergency (ER) | payer MEDICAID ==
[~2024-01-06] VITALS: Ht 185.4 cm; Wt 71.8 kg
[2024-01-06 11:33] VITALS: BP 97/63; PULSE 113; RESP 17; TEMP 98.7; O2SAT 97
[2024-01-06] MEDS: LORazepam 2MG/ML-1ML VIAL IM ONE (11:49)
== END 2024-01-06 12:01 | disposition home or self-care (01) ==
LOC: ER 10:59
DX: F41.1 Generalized anxiety disorder (principal); I10 Essential (primary) hypertension; F20.9 Schizophrenia, unspecified; F17.210 Nicotine dependence, cigarettes, uncomplicated; Z59.00 Homelessness unspecified; Z88.8 Allergy status to other drugs, medicaments and biological substances; Z79.899 Other long term (current) drug therapy
CPT/HCPCS: 96372; 99283; J2060

== ENCOUNTER 2024-01-11 07:19 | Emergency (ER) | payer MEDICAID ==
[~2024-01-11] VITALS: Ht 185.4 cm; Wt 83.0 kg
[2024-01-11 08:07] VITALS: BP 152/57
[2024-01-11] MEDS: ONDANSETRON HCL 4 MG/2 ML VIAL IV ONE (08:07)
[2024-01-11] MEDS: FAMOTIDINE (10MG/ML) 2ML VL IV ONE (08:07)
[2024-01-11 08:08] VITALS: PULSE 49; RESP 18; O2SAT 99
[2024-01-11] MEDS: SODIUM CHLORIDE 0.9% 1,000 ML IV ONE (08:13)
[2024-01-11] MEDS: HALOPERIDOL LACTATE 5 MG/ML INJ VIAL IM ONE (08:52)
[2024-01-11 09:09] LABS: Basophils # (auto) 0 10 ^3/uL (0-0.2); Basophils % (auto) 0.4 % (0.0-2.0); Eosinophils # (auto) 0.1 10 ^3/uL (0-0.8); Eosinophils % (auto) 1.5 % (0.0-7.0); Hematocrit 45.6 % (41.0-53.0); Lymphocytes # (auto) 1.6 10 ^3/uL (0.4-5.4); Lymphocytes % (auto) 18.6 % (10.0-50.0); Mean Corpuscular Hemoglobin 33.2 pg (28.0-32.0); Mean Corpuscular Hgb Conc. 35.2 g/dL (32.0-36.0); Mean Corpuscular Volume 94.5 fL (80.0-100.0); Monocytes # (auto) 0.7 10 ^3/uL (0-1.3); Monocytes % (auto) 8.8 % (0.0-12.0); Neutrophils % (auto) 70.7 % (37.0-80.0); Platelet Count (auto) 302 10^3/uL (140-450); Red Blood Cells 4.82 10^6/uL (4.5-5.90); Red Cell Distribution Width 13.3 % (11.8-14.3); White Blood Cell 8.4 10^3/uL (4.4-10.8)
[2024-01-11 09:13] LABS: Chloride 105 mmol/L (98-107); Potassium 4.1 mmol/L (3.5-5.1); Sodium 137 mmol/L (136-145)
[2024-01-11 09:14] LABS: Anion Gap 6 (5-15); Calcium 10.7 mg/dL (8.7-10.4); Carbon Dioxide 26 mmol/L (20-31)
[2024-01-11 09:19] LABS: BUN/Creatinine Ratio 10.2 (10.0-20.0); Blood Urea Nitrogen 11 mg/dL (9-23); Glucose 100 mg/dL (74-106)
== END 2024-01-11 09:33 | disposition left against medical advice (07) ==
LOC: ER 07:19
DX: F15.10 Other stimulant abuse, uncomplicated (principal); R11.2 Nausea with vomiting, unspecified; F19.10 Other psychoactive substance abuse, uncomplicated; F41.9 Anxiety disorder, unspecified; F17.210 Nicotine dependence, cigarettes, uncomplicated; F20.9 Schizophrenia, unspecified; I10 Essential (primary) hypertension; Z59.00 Homelessness unspecified
CPT/HCPCS: 36415; 80048; 85025; 96361; 96372; 96374; 96375; 99284; J1630; J2405; J3490; J7030

== ENCOUNTER 2024-03-02 10:05 | Emergency (ER) | payer MEDICAID ==
[~2024-03-02] VITALS: Ht 185.4 cm; Wt 68.4 kg
[~2024-03-02 10:05] MED LIST changes: +ALPR0.5T PO
[2024-03-02 10:15] VITALS: BP 133/76; TEMP 97
[2024-03-02 10:45] VITALS: PULSE 142; RESP 20; O2SAT 97
--- NOTE | 2024-03-02 10:59 | ED.PDOC ---
History of Present Illness HPI Comments A 38 YEAR OLD MALE PRESENTS TO THE ED WITH COMPLAINT OF REQUEST FOR ANXIETY MEDICATION. PATIENT STATES HE HAS A HISTORY OF ANXIETY AND PANIC ATTACKS AND USUALLY TAKES XANAX 0.5 MG TO MANAGE HIS ANXIETY, BUT NOTES HIS PRESCRIPTION WAS RECENTLY STOLEN. PATIENT IS REQUESTING 1 DOSE OF HIS XANAX 0.5 MG HERE IN THE ED. PATIENT DENIES SI, HI, FEVER, CHILLS, SHORTNESS OF BREATH, CHEST PAIN, ABDOMINAL PAIN, NAUSEA, VOMITING, HEADACHE, OR OTHER COMPLAINTS. NO OTHER SYMPTOMS OR MODIFYING FACTORS AT THIS TIME. PATIENT IS ALERT, ORIENTED X 4, AND HAS STEADY GAIT. Chief Complaint: Anxiety Time Seen by MD: 10:29 Primary Care Provider: MORGAN Shaw Notes: Nurses Notes, Medications, Allergies Allergies: Coded Allergies: Olanzapine (Verified Allergy, Unknown, 10/17/22) Home Meds Active Scripts Alprazolam (Xanax) 0.5 Mg Tb, 1 TAB PO BID, #14 TAB Prov:JAD SEXTON 02/11/24 Reported Medications Montelukast Sodium (SINGULAIR TABLET) 10 Mg Tb 11/28/12 [[id number] Mg] (Methocarbamol) 500 MG TAB No Conflict Check, MG 11/28/12 [Hydrocodone/Ace1 Ta9] (Hydrocodone/Acetaminophen) 1 TAB TAB No Conflict Check, TAB 11/28/12 [Benazepril Hcl40 Mg] (Benazepril Hcl) 40 MG TAB No Conflict Check, MG 11/28/12 Information Source: Patient Mode of Arrival: Ambulatory Severity: Mild Timing: Days Duration: Since onset, Days Prehospital treatment: None Medication Refill: For: Other (ANXIETY REACTION ) Past Medical History PAST MEDICAL HISTORY: Anxiety, HTN, Schizophrenia Surgical History: Denies all surgeries Family History Family History: Reviewed,noncontributory to illness Social History Smoker: Cigarettes, Less Than 1 Pack/Day Alcohol: Occasionally Drugs: Methamphetamine Lives In: Homeless Constitutional: denies: chills, diaphoresis, fatigue, fever, malaise, sweats, weakness, others EENTM: denies: blurred vision, double vision, ear bleeding, ear discharge, ear drainage, ear pain, ear ringing, eye pain, eye redness, hearing loss, mouth pain, mouth swelling, nasal discharge, nose bleeding, nose congestion, nose pain, photophobia, tearing, throat pain, throat swelling, voice changes, others Respiratory: denies: cough, hemoptysis, orthopnea, SOB at rest, shortness of breath, SOB with excertion, stridor, wheezing, others Cardiovascular: denies: chest pain, dizzy spells, diaphoresis, Dyspnea on exertion, edema, irregular heart beat, left arm pain, lightheadedness, palpitations, PND, syncope, others Gastrointestinal: denies: abdomen distended, abdominal pain, blood streaked bowels, constipated, diarrhea, dysphagia, difficulty swallowing, hematemesis, melena, nausea, poor appetite, poor fluid intake, rectal bleeding, rectal pain, vomiting, others Genitourinary: denies: burning, dysuria, flank pain, frequency, hematuria, incontinence, penile discharge, penile sore, pain, testicle pain, testicle sw elling, urgency, others Neurological: denies: dizziness, fainting, headache, left sided numbness, left sided weakness, numbness, paresthesia, pre-existing deficit, right sided numbness, right sided weakness, seizure, speech problems, tingling, tremors, weakness, others Musculoskeletal: denies: back pain, gout, joint pain, joint swelling, muscle pain, muscle stiffness, neck pain, others Integumetry: denies: bruises, change in color, change in hair/nails, dryness, laceration, lesions, lumps, rash, wounds, others Allergic/Immunocompromised: denies: Difficulty Healing, Frequent Infections, Hives, Itching, others Hematologic/Lymphatic: denies: anemia, blood clots, easy bleeding, easy bruising, swollen glands, others Endocrine: denies: excessive hunger, excessive sweating, excessive thirst, excessive urination, flushing, intolerance to cold, intolerance to heat, unexplained weight gain, unexplained weight loss, others Psychiatric: reports: anxiety; denies: bipolar disorder, depression, hopeless, panic disorder, schizophrenia, sleepless, suicidal, others All Other Systems: Reviewed and Negative Physical Exam General Appearance: No Apparent Distress, Normal, Other (ANXIOUS ) HEENT: Normal ENT Inspection, PERRL/EOMI, Pharynx Normal, TMs Normal Neck: Full Range of Motion, Non-Tender, Normal, Normal Inspection Respiratory: Chest Non-Tender, Lungs Clear, No Accessory Muscle Use, No Respiratory Distress, Normal Breath Sounds Cardiovascular: No Edema, No JVD, No Murmur, No Gallop, Normal Peripheral Pulses, Regular Rate/Rhythm Breast Exam: Deferred Gastrointestinal: No Organomegaly, Non Tender, No Pulsatile Mass, Normal Bowel Sounds, Soft Genitalia: Deferred Pelvic: Deferred Rectal: Deferred Extremities: No calf tenderness, Normal capillary refill, Normal inspection, Normal range of motion, Non-tender, No pedal edema Musculoskeletal : Apperance: Normal Neurologic: Alert, pattern drum maker II-XII nml as Tested, No Motor Deficits, Normal Affect, Normal Mood, No Sensory Deficits Cerebellar Function: Normal Reflexes: Normal Skin: Dry, Normal Color, Warm Peripheral Pulses: 2+ carotid (R), 2+ carotid (L) Lymphatic: No Adenopathy Was a procedure done? Was a procedure done?: No Differential Dx Considerations may include: ANXIETY REACTION, HYPERVENTILATION SYNDROME, MEDICATION REFILL, MEDICATION ADMINISTERED X-Ray, Labs, Meds, VS Vital Signs Date Time Temp Pulse Resp B/P (MAP) Pulse Ox O2 Delivery O2 Flow Rate FiO2 03/02/24 10:45 142 20 97 Room Air 03/02/24 10:15 134 03/02/24 10:15 97.0 142 20 133/76 (95) 97 97.0 03/02/24 10:15 97.0 142 20 133/76 (95) 97 X-Ray, Labs, Meds, VS Comment EXTERNAL MEDICAL RECORDS REVIEWED: [NONE] INDEPENDENT HISTORIANS: [NONE] SOCIAL DETERMINANTS OF HEALTH: [NONE] LABS ORDERED: NONE REVIEWED AND INTERPRETED RESULTS: NONE IMAGING ORDERED: NONE TREATMENTS ORDERED: XANAX 0.5 MG P.O. PROCEDURES PERFORMED: NONE CRITICAL CARE TIME: NONE I HAVE DISCUSSED THE PATIENT WITH THE ATTENDING PHYSICIAN DR. NIEVES AND HE AGREES WITH THE PATIENT'S PLAN OF CARE AND DISPOSITION. SHARED DECISION MAKING: DISCUSSED WITH PATIENT THAT THEIR WORKUP WAS NORMAL. PATIENT INSTRUCTED TO FOLLOW UP WITH PRIMARY CARE PROVIDER IN 1-2 DAYS FOR RE- EVALUATION OF SYMPTOMS. PATIENT VERBALIZES UNDERSTANDING TO RETURN TO ED FOR NEW OR WORSENING SYMPTOMS OR IF FOLLOW UP WITH PCP CANNOT BE OBTAINED. PATIENT FEELS COMFORTABLE GOING HOME AT THIS TIME. ALL QUESTIONS ADDRESSED AT TIME OF DISCHARGE. Time of 1ST Reevaluation: 11:07 Reevaluation 1ST: Improved Patient Education/Counseling: Diagnosis, Treatment, Need For Follow Up Family Education/Counseling: Diagnosis, Treatment, Need For Follow Up Medical Screening: No EMC Exist At This Time Departure 1 Departure Time of Disposition: 11:10 Impression: Primary Impression: Medication administered Additional Impression: History of anxiety Disposition: HOME / SELF CARE / HOMELESS Condition: Stable Additional Instructions: FOLLOW-UP WITH PCP IN 1 TO 2 DAYS. RETURN TO ED FOR ANY NEW OR WORSENING SYMPTOMS. Discharged With: Self Critical Care Note Critical Care Time?: No Stability Stability form required: No I personally scribed for JAD SEXTON ([email or web address]) on 03/02/24 at 10:59. Electronically submitted by Abbe Kirkpatrick ([email or web address]). JAD SEXTON Mar 02, 2024 10:59
[2024-03-02] MEDS: ALPRAZolam 0.5 MG TAB PO ONE (11:06)
--- NOTE | 2024-03-06 15:32 | ECG ---
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
== END 2024-03-02 11:16 | disposition home or self-care (01) ==
LOC: ER 10:05
DX: F41.9 Anxiety disorder, unspecified (principal); I10 Essential (primary) hypertension; F20.9 Schizophrenia, unspecified; F17.210 Nicotine dependence, cigarettes, uncomplicated; F15.90 Other stimulant use, unspecified, uncomplicated; Z59.00 Homelessness unspecified; Z88.8 Allergy status to other drugs, medicaments and biological substances; Z79.899 Other long term (current) drug therapy
CPT/HCPCS: 93005

== ENCOUNTER 2024-03-07 15:44 | Emergency (ER) | payer MEDICAID ==
[~2024-03-07] VITALS: Ht 182.9 cm; Wt 72.2 kg
--- NOTE | 2024-03-07 16:58 | ED.PDOC ---
History of Present Illness HPI Comments 38-year-old male patient presents to the clinic for anxiety patient reports that he was in the emergency room 4 days ago and received a prescription for Xanax. Patient states that he either misplaced this medication were that it was stolen. Patient states that he already called the pharmacy and the pharmacy told him that he needs to file a police report. Patient has not yet called his psychiatrist to see if he will be able to send him more of the Xanax. Patient reports that he has had increased anxiety and panic attacks. Patient states that he has chest pain when he has panic attacks. Patient states that he has had anxiety for years and has been also diagnosed with psychosis. Patient denies any thoughts of harming himself or others. Chief Complaint: Anxiety Time Seen by MD: 16:10 Primary Care Provider: DARCIE Reviewed Notes: Nurses Notes, Medications Allergies: Coded Allergies: Olanzapine (Verified Allergy, Unknown, 10/17/22) Home Meds Active Scripts Alprazolam (Xanax) 0.5 Mg Tb, 1 TAB PO BID, #14 TAB Prov:JAD SEXTON 02/11/24 Reported Medications Montelukast Sodium (SINGULAIR TABLET) 10 Mg Tb 11/28/12 [[id number] Mg] (Methocarbamol) 500 MG TAB No Conflict Check, MG 11/28/12 [Hydrocodone/Ace1 Ta9] (Hydrocodone/Acetaminophen) 1 TAB TAB No Conflict Check, TAB 11/28/12 [Benazepril Hcl40 Mg] (Benazepril Hcl) 40 MG TAB No Conflict Check, MG 11/28/12 Mode of Arrival: Ambulatory Past Medical History PAST MEDICAL HISTORY: Anxiety, HTN, Schizophrenia Surgical History: Denies all surgeries Family History Family History: Reviewed,noncontributory to illness Social History Smoker: Cigarettes, Less Than 1 Pack/Day Alcohol: Occasionally Drugs: Methamphetamine Lives In: Homeless Constitutional: denies: chills, diaphoresis, fatigue, fever, malaise, sweats, weakness, others EENTM: denies: blurred vision, double vision, ear bleeding, ear discharge, ear drainage, ear pain, ear ringing, eye pain, eye redness, hearing loss, mouth pain, mouth swelling, nasal discharge, nose bleeding, nose congestion, nose pain, photophobia, tearing, throat pain, throat swelling, voice changes, others Respiratory: denies: cough, hemoptysis, orthopnea, SOB at rest, shortness of breath, SOB with excertion, stridor, wheezing, others Cardiovascular: denies: chest pain, dizzy spells, diaphoresis, Dyspnea on exertion, edema, irregular heart beat, left arm pain, lightheadedness, palpitations, PND, syncope, others Gastrointestinal: denies: abdomen distended, abdominal pain, blood streaked bowels, constipated, diarrhea, dysphagia, difficulty swallowing, hematemesis, me bobbi, nausea, poor appetite, poor fluid intake, rectal bleeding, rectal pain, vomiting, others Genitourinary: denies: burning, dysuria, flank pain, frequency, hematuria, incontinence, penile discharge, penile sore, pain, testicle pain, testicle swelling, urgency, others Musculoskeletal: denies: back pain, gout, joint pain, joint swelling, muscle pain, muscle stiffness, neck pain, others Integumetry: denies: bruises, change in color, change in hair/nails, dryness, laceration, lesions, lumps, rash, wounds, others Allergic/Immunocompromised: denies: Difficulty Healing, Frequent Infections, Hives, Itching, others Hematologic/Lymphatic: denies: anemia, blood clots, easy bleeding, easy bruising, swollen glands, others Endocrine: denies: excessive hunger, excessive sweating, excessive thirst, excessive urination, flushing, intolerance to cold, intolerance to heat, unexplained weight gain, unexplained weight loss, others Psychiatric: reports: anxiety, panic disorder, sleepless All Other Systems: Reviewed and Negative Physical Exam Exam Comments Pt appears anxious with shaky speech General Appearance: No Apparent Distress, Normal HEENT: Normal ENT Inspection, Pharynx Normal, TMs Normal Neck: Full Range of Motion, Non-Tender, Normal, Normal Inspection Respiratory: Chest Non-Tender, Lungs Clear, No Accessory Muscle Use, No Respiratory Distress, Normal Breath Sounds Cardiovascular: No Edema, No JVD, No Murmur, No Gallop, Normal Peripheral Pulses, Regular Rate/Rhythm Breast Exam: Deferred Gastrointestinal: No Organomegaly, Non Tender, No Pulsatile Mass, Normal Bowel Sounds, Soft Genitalia: Deferred Pelvic: Deferred Rectal: Deferred Extremities: No calf tenderness, Normal capillary refill, Normal inspection, Normal range of motion, Non-tender, No pedal edema Musculoskeletal : Apperance: Normal Neurologic: Alert, escort blind II-XII nml as Tested, No Motor Deficits, Normal Affect, Normal Mood, No Sensory Deficits Cerebellar Function: Normal Reflexes: Normal Skin: Dry, Normal Color, Warm Lymphatic: No Adenopathy Was a procedure done? Was a procedure done?: No Differential Dx Considerations may include: anxiety, drug seeking, stress reaction, psychosis X-Ray, Labs, Meds, VS Vital Signs Date Time Temp Pulse Resp B/P (MAP) Pulse Ox O2 Delivery O2 Flow Rate FiO2 03/07/24 15:57 97.7 109 20 136/77 (96) 97 Current Medications Medications (Trade) Dose Ordered Sig/Joy Route Start Time Stop Time Status Last Admin Alprazolam (Xanax Tablet) 0.5 mg ONCE ONCE PO 03/07/24 17:15 03/07/24 17:21 DC 03/07/24 17:31 X-Ray, Labs, Meds, VS Comment Patient given Xanax 0.5 mg in the office. Patient advised to follow up with a psychiatrist for a refill of his Xanax. Patient advised that we can not fill his Xanax again because he was given 60 pills on February 17. Patient reports that he was also given 14 pills approximately 4 days ago. Patient states that he either lost or misplaced his pills. Patient also advised to make a police report if he believes they were stolen. Patient to return to the emergency room if he has any increased feelings of anxiety and needs treatment. On re-evaluation patient has symptomatic improvement. Patient is stable for discharge at this time. All test results and diagnostic imaging have been interpreted. All diagnostic findings, discharge care, and education instruction provided to the patient. Follow-up with PCP in 2-3 days Patient verbalized understanding, discharge instructions and agrees to treatment plan Vital signs are stable Patient is ambulatory Patient advised of which symptoms necessitate a return visit to the emergency room. Patient to return emergency room for any new worsening symptoms. Patient is aware that the purpose of this visit is for an acute medical emergency requiring emergent stabilization. Chronic conditions, including malignancies have not been ruled out. Patient is instructed to follow up with PCP as directed for continued care and workup. If unable to arrange follow up, patient is to return to the emergency room for reassessment. Patient was given verbal and written discharge instructions and acknowledges understanding Time of 1ST Reevaluation: 17:48 Reevaluation 1ST: Improved Patient Education/Counseling: Diagnosis, Treatment, Prognosis, Need For Follow Up Family Education/Counseling: No Family Present Departure 1 Departure Time of Disposition: 17:49 Impression: Primary Impression: Acute anxiety Additional Impression: Anxiety reaction Disposition: 01 HOME / SELF CARE / HOMELESS Condition: Stable Discharged With: Self Critical Care Note Critical Care Time?: No Stability Stability form required: No Heart Score Heart Score: Heart Score Response (Comments) Value History N/A 0 EKG N/A 0 Age N/A 0 Risk Factors N/A 0 Troponin N/A 0 Total 0 JOSE LAY [facility] Mar 07, 2024 16:58
[2024-03-07] MEDS: ALPRAZolam 0.5 MG TAB PO ONE (17:31)
[2024-03-07 18:01] VITALS: BP 127/67; PULSE 80; TEMP 98
[2024-03-07 18:02] VITALS: RESP 20; O2SAT 97
== END 2024-03-07 18:04 | disposition home or self-care (01) ==
LOC: ER 15:44
DX: F41.1 Generalized anxiety disorder (principal); I10 Essential (primary) hypertension; F17.210 Nicotine dependence, cigarettes, uncomplicated; F15.90 Other stimulant use, unspecified, uncomplicated; Z88.8 Allergy status to other drugs, medicaments and biological substances; Z79.899 Other long term (current) drug therapy

== ENCOUNTER 2024-03-13 08:45 | Emergency (ER) | payer MEDICAID ==
[~2024-03-13] VITALS: Ht 185.4 cm; Wt 90.5 kg
[2024-03-13 09:09] VITALS: BP 106/61; PULSE 114; RESP 16; TEMP 97.9; O2SAT 97
--- NOTE | 2024-03-13 09:38 | ED.PDOC ---
Psychiatric HPI Comments Hx of anxiety Seen 1 week ago for same complaint Reports he lost his Xanax 0.5 in a uber Chief Complaint: Anxiety Time Seen by MD: 09:30 Primary Care Provider: DARCIE Reviewed Notes: Nurses Notes, Medications Information Source: Patient Mode of Arrival: Ambulatory Past Medical History PAST MEDICAL HISTORY: Anxiety, HTN, Schizophrenia Surgical History: Denies all surgeries Family History Family History: Reviewed,noncontributory to illness Social History Smoker: Cigarettes, Less Than 1 Pack/Day Alcohol: Occasionally Drugs: Methamphetamine Lives In: Homeless All Other Systems: Reviewed and Negative (per hpi) Physical Exam General Appearance: No Apparent Distress, Normal HEENT: Normal ENT Inspection, Pharynx Normal, TMs Normal Neck: Full Range of Motion, Non-Tender, Normal, Normal Inspection Respiratory: Chest Non-Tender, Lungs Clear, No Accessory Muscle Use, No Respiratory Distress, Normal Breath Sounds Cardiovascular: No Edema, No JVD, No Murmur, No Gallop, Normal Peripheral Pulses, Regular Rate/Rhythm Breast Exam: Deferred Gastrointestinal: No Organomegaly, Non Tender, No Pulsatile Mass, Normal Bowel Sounds, Soft Genitalia: Deferred Pelvic: Deferred Rectal: Deferred Extremities: No calf tenderness, Normal capillary refill, Normal inspection, Normal range of motion, Non-tender, No pedal edema Musculoskeletal : Apperance: Normal Neurologic: Alert, co pilot II-XII nml as Tested, No Motor Deficits, Normal Affect, Normal Mood, No Sensory Deficits Cerebellar Function: Normal Reflexes: Normal Skin: Dry, Normal Color, Warm Lymphatic: No Adenopathy Was a procedure done? Was a procedure done?: No Psych Differential Dx Psych. Differential Dx: Anxiety X-Ray, Labs, Meds, VS Vital Signs Date Time Temp Pulse Resp B/P (MAP) Pulse Ox O2 Delivery O2 Flow Rate FiO2 03/13/24 09:09 97.9 114 16 106/61 (76) 97 97.9 03/13/24 09:09 114 16 97 Room Air 03/13/24 08:56 108 03/13/24 08:54 97.9 114 16 106/61 (76) 97 Current Medications Medications (Trade) Dose Ordered Sig/Joy Route Start Time Stop Time Status Last Admin Alprazolam (Xanax Tablet) 0.5 mg ONCE ONCE PO 03/13/24 09:45 03/13/24 09:46 DC 03/13/24 09:47 X-Ray, Labs, Meds, VS Comment Patient has been seen multiple times for the same complaint Seeking behavior Time of 1ST Reevaluation: 09:30 Reevaluation 1ST: Improved Patient Education/Counseling: Diagnosis, Treatment Family Education/Counseling: Diagnosis, Treatment Departure 1 Departure Time of Disposition: 09:39 Impression: Primary Impression: Acute anxiety Disposition: 01 HOME / SELF CARE / HOMELESS Condition: Stable Discharged With: Self Critical Care Note Critical Care Time?: No Stability Stability form required: No Heart Score Heart Score: Heart Score Response (Comments) Value History N/A 0 EKG N/A 0 Age N/A 0 Risk Factors N/A 0 Troponin N/A 0 Total 0 SHAHID FRIEDMAN NP Mar 13, 2024 09:38
[2024-03-13] MEDS: ALPRAZolam 0.5 MG TAB PO ONE (09:47)
--- NOTE | 2024-03-13 12:57 | ECG ---
[facility] Test Date: 2024-03-13 Test Time: 08:56:36 Pat Name: FRANCISCO WANG Department: ER Room: Gender: M Memory Care Program Director: ETELVINA : 1985 Requested By: SHAHID FRIEDMAN Order Number: [id number] Reading MD: Joseluis Zaman Measurements Intervals [place] Rate: 108 P: 80 [place]: 168 QRS: 57 QRSD: 74 T: 79 QT: 331 QTc: 444 Interpretive Statements Sinus tachycardia Electronically Signed On 03-14-2024 13:08:43 PST by Joseluis Zaman Please click the below link to view image of tracing.
== END 2024-03-13 09:48 | disposition home or self-care (01) ==
LOC: ER 08:45
DX: F41.9 Anxiety disorder, unspecified (principal); I10 Essential (primary) hypertension; F20.9 Schizophrenia, unspecified; F17.210 Nicotine dependence, cigarettes, uncomplicated; F15.90 Other stimulant use, unspecified, uncomplicated; Z59.00 Homelessness unspecified
CPT/HCPCS: 93005

== ENCOUNTER 2024-03-21 08:25 | Emergency (ER) | payer MEDICAID ==
[~2024-03-21] VITALS: Ht 172.7 cm; Wt 71.0 kg
--- NOTE | 2024-03-21 08:43 | ECG ---
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
[2024-03-21 08:45] VITALS: BP 123/81; PULSE 60; RESP 16; TEMP 98; O2SAT 99
--- NOTE | 2024-03-21 08:48 | ED.PDOC ---
History of Present Illness HPI Comments 38 y/o M with a Hx of drug dependency and anxiety, is BIBA for c/o ALOC w/abnormal behavior, today. Per EMS report, patient was going to the drug center for methadone when staff called after endorsing on patient being altered, characterized on him acting "slow" than his usual alert self. Patient is a poor historian and slow to respond at time of assessment and denies any recent substance use, with no additional relevant or pertinent Hx reported. Patient has no other reported associated symptoms at this time. Chief Complaint: Overdose Time Seen by MD: 08:35 Primary Care Provider: DARCIE Reviewed Notes: Nurses Notes, Floater Operator Notes, Medications, Allergies Allergies: Coded Allergies: Olanzapine (Verified Allergy, Unknown, 10/17/22) Home Meds Active Scripts Alprazolam (Xanax) 0.5 Mg Tb, 1 TAB PO BID, #14 TAB Prov:CARLIEJAD 02/11/24 Reported Medications Montelukast Sodium (SINGULAIR TABLET) 10 Mg Tb 11/28/12 [[id number] Mg] (Methocarbamol) 500 MG TAB No Conflict Check, MG 11/28/12 [Hydrocodone/Ace1 Ta9] (Hydrocodone/Acetaminophen) 1 TAB TAB No Conflict Check, TAB 11/28/12 [Benazepril Hcl40 Mg] (Benazepril Hcl) 40 MG TAB No Conflict Check, MG 11/28/12 Information Source: Patient, Emergency Med Personnel Mode of Arrival: EMS Severity: Moderate Timing: Hours Duration: Since onset Prehospital treatment: 12 Lead EKG, It Applications 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 Past Medical History PAST MEDICAL HISTORY: Anxiety, HTN, Schizophrenia Past Medical History (Other): right eye blindness Surgical History: Denies all surgeries Family History Family History: Reviewed,noncontributory to illness Social History Smoker: Cigarettes, Less Than 1 Pack/Day Alcohol: Occasionally Drugs: Methamphetamine Lives In: Homeless Neurological: reports: others (ALOC w/abnormal behavior ) All Other Systems: Reviewed and Negative (negative unless otherwise stated above or in HPI) Physical Exam General Appearance: No Apparent Distress HEENT: Pharynx Normal, TMs Normal, Other (pinpoint pupils and conjunctivi bilaterally) Neck: Full Range of Motion, Non-Tender, Normal, Normal Inspection Respiratory: Chest Non-Tender, Lungs Clear, No Accessory Muscle Use, No R espiratory Distress, Normal Breath Sounds Cardiovascular: No Edema, No JVD, No Murmur, No Gallop, Normal Peripheral Pulses, Regular Rate/Rhythm Breast Exam: Deferred Gastrointestinal: No Organomegaly, Non Tender, No Pulsatile Mass, Normal Bowel Sounds, Soft Genitalia: Deferred Pelvic: Deferred Rectal: Deferred Extremities: No calf tenderness, Normal capillary refill, Normal inspection, Normal range of motion, Non-tender, No pedal edema Musculoskeletal : Apperance: Normal 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 Was a procedure done?: No Differential Dx Considerations may include: substance dependency, substance overdose, encephalopathy X-Ray, Labs, Meds, VS Vital Signs Date Time Temp Pulse Resp B/P (MAP) Pulse Ox O2 Delivery O2 Flow Rate FiO2 03/21/24 08:45 98.0 60 16 123/81 (95) 99 98.0 03/21/24 08:45 60 16 99 Room Air* 0 21 03/21/24 08:40 98.0 60 16 123/81 (95) 99 03/21/24 08:36 67 Time of 1ST Reevaluation: 09:05 Reevaluation 1ST: Unchanged Reevaluation 2ND: Resolved Patient Education/Counseling: Diagnosis, Treatment, Prognosis, Need For Follow Up Family Education/Counseling: No Family Present Additional Information - I reviewed the following notes from patient's past medical encounters: ED physician documentation 03/13/24 - The following tests were ordered, and results were reviewed by me:EKG - Additional information was gathered from interviewing the following independent Historian: EMT - I discussed treatments and results with medical personnel pt is alert, oriented and states his mother will pick him up. pt is a opioid addict with continual abuse. methadone clinic sent him here for concerns of OD. it is obvious that he is u nder the influence, but has not show any cardiopulmonary compromise. he is stable for discharge Departure 1 Departure Time of Disposition: 10:35 Impression: Primary Impression: Substance abuse Disposition: 01 HOME / SELF CARE / HOMELESS Condition: Good Discharged With: Self Critical Care Note Critical Care Time?: No Stability Stability form required: No Heart Score Heart Score: Heart Score Response (Comments) Value History N/A 0 EKG N/A 0 Age N/A 0 Risk Factors N/A 0 Troponin N/A 0 Total 0 I personally scribed for JAZMINE HAINES MD ([facility]) on 03/21/24 at 08:48. Electronically submitted by Sherman Luis ([email or web address]). I personally scribed for JAZMINE HAINES MD ([facility]) on 03/21/24 at 08:50. Electronically submitted by Sherman Luis ([email or web address]). JAZMINE HAINES MD Mar 21, 2024 08:48
== END 2024-03-21 10:43 | disposition home or self-care (01) ==
LOC: EDBD 08:25 → ER 08:25
DX: F19.10 Other psychoactive substance abuse, uncomplicated (principal); F41.9 Anxiety disorder, unspecified; F20.9 Schizophrenia, unspecified; I10 Essential (primary) hypertension; H54.61 Unqualified visual loss, right eye, normal vision left eye; F17.210 Nicotine dependence, cigarettes, uncomplicated; Z59.00 Homelessness unspecified; Z88.8 Allergy status to other drugs, medicaments and biological substances
CPT/HCPCS: 93005

== ENCOUNTER 2024-04-04 11:11 | Emergency (ER) | payer MEDICAID ==
[~2024-04-04] VITALS: Ht 185.4 cm; Wt 70.0 kg
--- NOTE | 2024-04-04 11:29 | ECG ---
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
--- NOTE | 2024-04-04 11:45 | ED.PDOC ---
History of Present Illness HPI Comments 38-year-old male brought in by self complaining of worsening anxiety and panic attacks for the past month, severe for the past week. Patient states he was evaluated by his psychiatrist recently and was advised to stay on the same anxiety medications which include Xanax and his other psych meds. He states he was seen by his primary doctor a week and a half ago and was prescribed a new medication for anxiety, however it will not be available until 04/19. He states he attempted to contact his psychiatrist today, and was advised to come to the emergency room. He notes that he was admitted here in the past for a possible seizure, described as a blank stare, then twitching" that lasted less than a minute. Patient states he had another episode recently. He was advised by his primary physician that he will need brain imaging and urology follow-up, which is in process. Patient currently denies any headache, new vision changes, focal weakness, nausea or vomiting. He denies suicidal ideation, hopelessness, thoughts of hurting himself, homicidal ideation, auditory or visual hallucinations. He states he has capable of performing activities of daily living. Chief Complaint: Seizure Time Seen by MD: 11:22 Primary Care Provider: KATTY Allergies: Coded Allergies: Olanzapine (Verified Allergy, Unknown, 10/17/22) Home Meds Active Scripts Lorazepam (Lorazepam) 1 Mg Tab, 1 TAB PO TID PRN, #15 TAB prn anxiety Prov:ANDIE BEE MD 04/04/24 Alprazolam (Xanax) 0.5 Mg Tb, 1 TAB PO BID, #14 TAB Prov:JAD SEXTON 02/11/24 Reported Medications Montelukast Sodium (SINGULAIR TABLET) 10 Mg Tb 11/28/12 [[id number] Mg] (Methocarbamol) 500 MG TAB No Conflict Check, MG 11/28/12 [Hydrocodone/Ace1 Ta9] (Hydrocodone/Acetaminophen) 1 TAB TAB No Conflict Check, TAB 11/28/12 [Benazepril Hcl40 Mg] (Benazepril Hcl) 40 MG TAB No Conflict Check, MG 11/28/12 Mode of Arrival: Ambulatory Past Medical History PAST MEDICAL HISTORY: Anxiety, HTN Past Medical History (Other): Schizoaffective disorder Surgical History (Other): Eye surgery including strabismus surgery, cataract and glaucoma Family History Family History: Reviewed,noncontributory to illness Social History Smoker: Cigarettes, Less Than 1 Pack/Day Alcohol: Occasionally Drugs: Methamphetamine Lives In: Homeless All Other Systems: Reviewed and Negative (Comprehensive systems review obtained and negative except for what is stated in the HPI.) Physical Exam General Appearance: No Apparent Distress HEENT: Other (Pupils symmetric, extraocular movements intact, no facial asymmetry) Neck: Full Range of Motion, Normal Inspection Respiratory: Lungs Clear, No Accessory Muscle Use, No Respiratory Distress, Normal Breath Sounds Cardiovascular: No Edema, No JVD, Tachycardia Breast Exam: Deferred Gastrointestinal: Non Tender, Soft Genitalia: Deferred Pelvic: Deferred Rectal: Deferred Extremities: No calf tenderness, Normal inspection, Normal range of motion, Non-tender, No pedal edema Neurologic: Alert (Oriented x4), Normal Affect, Other (Anxious. Ambulatory without difficulty. No gross focal deficit.) Cerebellar Function: NOT DONE Reflexes: NOT DONE Skin: Dry, Normal Color, Warm Lymphatic: NOT DONE Was a procedure done? Was a procedure done?: No EKG EKG : Comments Sinus tach, rate 135, normal intervals, normal axis, normal QRS, nonspecific T change. Differential Dx Considerations may include: Anxiety/panic attack, drug/alcohol abuse, electrolyte imbalance, hypovolemia, seizure, syncope, CVA, TIA, intracranial lesion, among others X-Ray, Labs, Meds, VS Vital Signs Date Time Temp Pulse Resp B/P (MAP) Pulse Ox O2 Delivery O2 Flow Rate FiO2 04/04/24 13:20 Room Air* 0 21 04/04/24 13:19 98.6 102 17 126/74 (91) 99 98.6 04/04/24 11:22 135 04/04/24 11:20 98.0 142 16 133/70 (91) 96 Lab Test 04/04/24 11:56 04/04/24 11:25 Range/Units White Blood Count 9.0 4.4-10.8 10^3/uL Red Blood Count 4.35 L 4.5-5.90 10^6/uL Hemoglobin 14.2 13.5-17.5 g/dL Hematocrit 41.6 41.0-53.0 % Mean Corpuscular Volume 95.5 80.0-100.0 fL Mean Corpuscular Hemoglobin 32.5 H 28.0-32.0 pg Mean Corpuscular Hemoglobin Concent 34.1 32.0-36.0 g/dL Red Cell Distribution Width 13.7 11.8-14.3 % Platelet Count 341 140-450 10^3/uL Mean Platelet Volume 8.0 6.9-10.8 fL Neutrophils (%) (Auto) 61.9 37.0-80.0 % Lymphocytes (%) (Auto) 30.0 10.0-50.0 % Monocytes (%) (Auto) 7.0 0.0-12.0 % Eosinophils (%) (Auto) 0.4 0.0-7.0 % Basophils (%) (Auto) 0.7 0.0-2.0 % Neutrophils # (Auto) 5.6 1.6-8.6 10 ^3/uL Lymphocytes # (Auto) 2.7 0.4-5.4 10 ^3/uL Monocytes # (Auto) 0.6 0-1.3 10 ^3/uL Eosinophils # (Auto) 0 0-0.8 10 ^3/uL Basophils # (Auto) 0.1 0-0.2 10 ^3/uL Nucleated Red Blood Cells 0.0 % Sodium Level 139 136-145 mmol/L Potassium Level 3.7 3.5-5.1 mmol/L Chloride Level 107 98-107 mmol/L Carbon Dioxide Level 23 20-31 mmol/L Anion Gap 9 5-15 Blood Urea Nitrogen 8 L 9-23 mg/dL Creatinine 1.12 0.700-1.30 mg/dL Glomerular Filtration Rate Calc 85 >90 mL/min BUN/Creatinine Ratio 7.1 L 10.0-20.0 Serum Glucose 134 H 74-106 mg/dL Calcium Level 9.8 8.7-10.4 mg/dL Urine Color Yellow Yellow Urine Clarity Clear Clear Urine pH 6.5 5.0-9.0 Urine Specific Lilly 1.020 1.001-1.035 Urine Protein Negative Negative Urine Ketones Trace Negative Urine Blood Negative Negative /uL Urine Nitrite Negative Negative Urine Bilirubin Negative Negative Urine Urobilinogen 2 H Negative mg/dL Urine Leukocyte Esterase Trace Negative /uL Urine RBC <1 0 - 3 /hpf Urine WBC 1 0 - 3 /hpf Urine Squamous Epithelial Cells None seen <5 /hpf Urine Bacteria None seen None Seen /hpf Urine Hyaline Casts Few 0 - 2 /lpf Urine Glucose Normal Normal mg/dL Current Medications Medications (Trade) Dose Ordered Sig/Joy Route Start Time Stop Time Status Last Admin Lorazepam (Ativan Inj) 1 mg ONCE ONCE IM 04/04/24 11:45 04/04/24 11:46 DC 04/04/24 12:36 Chlordiazepoxide HCl (Librium Capsule) 25 mg ONCE ONCE PO 04/04/24 11:45 04/04/24 11:46 DC 04/04/24 12:36 [place] [address] Ph: [phone] DIAGNOSTIC IMAGING Diagnostic Imaging Report : [id number] Signed PATIENT: FRANCISCO WANG IVACCT: [id number] UNIT: [id number] : 1985 LOC: ER ROOM / BED: / AGE / SEX: 38 / M ADM STATUS: REG ER SERVICE 1142 ORDERING PHYSICIAN: ANDIE BEE MD PROCEDURE(s): HWOCT - HEAD WITHOUT CONTRAST REASON: POSS SZ ORDER NUMBER(s): [id number], ACCESSION NUMBER(s): [id number] EXAM: CT HEAD WITHOUT CONTRAST HISTORY: POSS JUDE COMPARISON: None TECHNIQUE: Axial images of the head were obtained and reformatted in coronal and sagittal planes. All CT scans at this medical facility are performed using dose modulation techniques as appropriate to a performed exam including the following: Automated exposure control was utilized; adjustment of the MA and/or KV according to patient size; and use of iterative reconstruction technique. CT Dose: CTDI volume is 57.82 mGy. Dose-length product is 1023.79 mGy*cm FINDINGS: There is no evidence of acute intracranial hemorrhage, mass, mass effect midline shift. There is no hydrocephalus or extra-axial fluid collection. Marshall-white matter differentiation is maintained. The visualized paranasal sinuses and mastoid air cells are clear. The calvarium is intact. IMPRESSION: 1. No acute intracranial process. HS:Y ATED BY: MUNDO RENNER MD DICTATED DATE/TIME: 04/04/24 1153 SIGNED BY: MUNDO RENNER MD SIGNED DATE/TIME: 04/04/24 1157 CC: X-Ray, Labs, Meds, VS Comment 38-year-old male with a history of anxiety/panic attacks, hypertension and schizoaffective disorder complaining of severe anxiety and a possible seizure. Vitals remarkable for heart rate 142 Exam remarkable for anxiety and tachycardia Rhythm strip independently interpreted by me: Sinus tach, rate 135, no ectopy. CT head unremarkable CBC, basic metabolic panel unremarkable for any abnormality of acute significance Patient treated with the following in the ED: Ativan 1 mg IM, Librium 25 mg p.o. On re-evaluation, patient states he is feeling less anxious, heart rate has come down, and other vitals are stable. He continues to denies suicidal or homicidal ideation, auditory or visual hallucinations. Hospitalization was considered, however patient states he has good follow-up with his primary physician and psychiatrist. I no longer feel hospitalization is necessary since patient had rapid improvement of symptoms with treatment in the ED. He has no noted seizure activity here, and I am comfortable discharging him with close follow-up with his primary physician and psychiatrist. He will be referred to Dr. Farmer for neurology follow-up. Rx Ativan Time of 1ST Reevaluation: 13:15 Reevaluation 1ST: Improved Patient Education/Counseling: Diagnosis, Treatment, Need For Follow Up Family Education/Counseling: No Family Present Departure 1 Departure Time of Disposition: 13:05 Impression: Primary Impression: Anxiety Disposition: 01 HOME / SELF CARE / HOMELESS Condition: Stable Referrals: SHANICE FARMER MD Additional Instructions: Your blood tests and head CT were unremarkable. I have prescribed medication for anxiety. Follow-up with Dr. Farmer, neurologist for further evaluation of possible seizures. Follow-up with your psychiatrist in 1-2 days. [place] [address] Ph: [phone] DIAGNOSTIC IMAGING Diagnostic Imaging Report : [id number] Signed PATIENT: FRANCISCO WANG IV ACCT: [id number] UNIT: [id number] : 1985 LOC: ER ROOM / BED: / AGE / SEX: 38 / M ADM STATUS: REG ER SERVICE 1142 ORDERING PHYSICIAN: ANDIE BEE MD PROCEDURE(s): HWOCT - HEAD WITHOUT CONTRAST REASON: POSS SZ ORDER NUMBER(s): [id number], ACCESSION NUMBER(s): [id number] EXAM: CT HEAD WITHOUT CONTRAST HISTORY: POSS SZ COMPARISON: None TECHNIQUE: Axial images of the head were obtained and reformatted in coronal and sagittal planes. All CT scans at this medical facility are performed using dose modulation techniques as appropriate to a performed exam including the following: Automated exposure control was utilized; adjustment of the MA and/or KV according to patient size; and use of iterative reconstruction technique. CT Dose: CTDI volume is 57.82 mGy. Dose-length product is 1023.79 mGy*cm FINDINGS: There is no evidence of acute intracranial hemorrhage, mass, mass effect midline shift. There is no hydrocephalus or extra-axial fluid collection. Marshall-white matter differentiation is maintained. The visualized paranasal sinuses and mastoid air cells are clear. The calvarium is intact. IMPRESSION: 1. No acute intracranial process. HS:Y ATED BY: MUNDO RENNER MD DICTATED DATE/TIME: 04/04/24 1153 e-Prescriptions Lorazepam (Lorazepam) 1 Mg Tab 1 TAB PO TID PRN, #15 TAB prn anxiety Prov: ANDIE BEE MD 04/04/24 Discharged With: Self Critical Care Note Critical Care Time?: No Stability Stability form required: No Heart Score Heart Score: Heart Score Response (Comments) Value History N/A 0 EKG N/A 0 Age N/A 0 Risk Factors N/A 0 Troponin N/A 0 Total 0 I personally scribed for ANDIE BEE MD ([email or web address]) on 04/04/24 at 12:14. Electronically submitted by Geno Lopez ([email or web address]). ANDIE BEE MD Apr 04, 2024 11:45
--- NOTE | 2024-04-04 11:56 | DVH ---
EXAM: CT HEAD WITHOUT CONTRAST HISTORY: POSS SZ COMPARISON: None TECHNIQUE: Axial images of the head were obtained and reformatted in coronal and sagittal planes. All CT scans at this medical facility are performed using dose modulation techniques as appropriate t o a performed exam including the following: Automated exposure control was utilized; adjustment of th e MA and/or KV according to patient size; and use of iterative reconstruction technique. CT Dose: CTDI volume is 57.82 mGy. Dose-length product is 1023.79 mGy*cm FINDINGS: There is no evidence of acute intracranial hemorrhage, mass, mass effect midline shift. There is no h ydrocephalus or extra-axial fluid collection. Marshall-white matter differentiation is maintained. The visualized paranasal sinuses and mastoid air cells are clear. The calvarium is intact. IMPRESSION: 1. No acute intracranial process. HS:Y
[2024-04-04 12:29] LABS: Urine Bacteria None Seen /hpf (None Seen)
[2024-04-04] MEDS: chlordiazePOXIDE HCL 25 MG CAP PO ONE (12:36)
[2024-04-04] MEDS: LORazepam 2MG/ML-1ML VIAL IM ONE (12:36)
[2024-04-04 12:41] LABS: Urine Blood Negative /uL (Negative); Urine Clarity Clear (Clear); Urine Color Yellow (Yellow); Urine Hyaline Cast FEW /lpf (0 - 2); Urine Protein, UAD Negative (Negative); Urine Squamous Epithelial Cell None Seen /hpf (<5); Urine Urobilinogen 2 mg/dL (Negative); Urine WBC 1 /hpf (0 - 3); Urine pH 6.5 (5.0-9.0)
[2024-04-04 12:43] LABS: Basophils # (auto) 0.1 10 ^3/uL (0-0.2); Basophils % (auto) 0.7 % (0.0-2.0); Eosinophils # (auto) 0 10 ^3/uL (0-0.8); Eosinophils % (auto) 0.4 % (0.0-7.0); Hematocrit 41.6 % (41.0-53.0); Hemoglobin 14.2 g/dL (13.5-17.5); Lymphocytes # (auto) 2.7 10 ^3/uL (0.4-5.4); Mean Corpuscular Hemoglobin 32.5 pg (28.0-32.0); Mean Corpuscular Hgb Conc. 34.1 g/dL (32.0-36.0); Mean Corpuscular Volume 95.5 fL (80.0-100.0); Monocytes # (auto) 0.6 10 ^3/uL (0-1.3); Neutrophils # (auto) 5.6 10 ^3/uL (1.6-8.6); Neutrophils % (auto) 61.9 % (37.0-80.0); Platelet Count (auto) 341 10^3/uL (140-450); Red Blood Cells 4.35 10^6/uL (4.5-5.90); Red Cell Distribution Width 13.7 % (11.8-14.3)
[2024-04-04 12:44] LABS: Anion Gap 9 (5-15); Carbon Dioxide 23 mmol/L (20-31); Potassium 3.7 mmol/L (3.5-5.1); Sodium 139 mmol/L (136-145)
[2024-04-04 12:45] LABS: Calcium 9.8 mg/dL (8.7-10.4)
[2024-04-04 12:50] LABS: BUN/Creatinine Ratio 7.1 (10.0-20.0); Blood Urea Nitrogen 8 mg/dL (9-23); Chloride 107 mmol/L (98-107); Glucose 134 mg/dL (74-106)
[2024-04-04] MEDS ORDERED: LORA-1123 PO (13:08)
[2024-04-04 13:19] VITALS: BP 126/74; PULSE 102; RESP 17; TEMP 98.6; O2SAT 99
== END 2024-04-04 13:09 | disposition home or self-care (01) ==
LOC: ER 11:11
DX: F41.9 Anxiety disorder, unspecified (principal); F17.210 Nicotine dependence, cigarettes, uncomplicated; F15.10 Other stimulant abuse, uncomplicated; I10 Essential (primary) hypertension; Z59.00 Homelessness unspecified; Z79.899 Other long term (current) drug therapy
CPT/HCPCS: 36415; 70450; 80048; 81001; 85025; 93005; 96372; 99285; J2060

== ENCOUNTER 2024-04-11 15:31 | Emergency (ER) | payer MEDICAID ==
[~2024-04-11] VITALS: Ht 170.2 cm; Wt 72.3 kg
[~2024-04-11 15:31] MED LIST changes: +LORA-1123 PO
--- NOTE | 2024-04-11 15:54 | ED.PDOC ---
History of Present Illness HPI Comments 38 y/o M with PMHX of anxiety presents to the ED for CC of anxiety. Patient states, that he has been experiencing episodes of heightened anxiety with associated symptoms of shortness of breath xmonths. Patient relays, that he has ran out of his medications which has caused his symptoms to worsen over the last two days. Patient was last seen at [facility] on 04/04/24 for c/o anxiety. Patient smokes tobacco, denies ETOH consumption, or illicit drug use. Patient denies SI , HI, fever, chills, body-aches, or N/V/D. No other symptoms or modifying factors at this time. Time Seen by MD: 15:40 Primary Care Provider: KATTY Shaw Notes: Nurses Notes, Medications, Allergies Allergies: Coded Allergies: Olanzapine (Verified Allergy, Unknown, 10/17/22) Home Meds Active Scripts Lorazepam (Lorazepam) 1 Mg Tab, 1 TAB PO TID PRN, #15 TAB prn anxiety Prov:SERGEY NIEVES MD 04/11/24 Alprazolam (Xanax) 0.5 Mg Tb, 1 TAB PO BID, #14 TAB Prov:JAD SEXTON 02/11/24 Reported Medications Montelukast Sodium (SINGULAIR TABLET) 10 Mg Tb 11/28/12 [[id number] Mg] (Methocarbamol) 500 MG TAB No Conflict Check, MG 11/28/12 [Hydrocodone/Ace1 Ta9] (Hydrocodone/Acetaminophen) 1 TAB TAB No Conflict Check, TAB 11/28/12 [Benazepril Hcl40 Mg] (Benazepril Hcl) 40 MG TAB No Conflict Check, MG 11/28/12 Information Source: Patient Mode of Arrival: Ambulatory Severity: Mild Timing: Days Duration: Since onset Prehospital treatment: None Medication Refill: Ran out of Medication Past Medical History PAST MEDICAL HISTORY: Anxiety, HTN Family History Family History: Reviewed,noncontributory to illness Social History Smoker: Cigarettes, Less Than 1 Pack/Day Alcohol: Occasionally Drugs: Methamphetamine Lives In: Homeless Constitutional: denies: chills, diaphoresis, fatigue, fever, malaise, sweats, weakness, others EENTM: denies: blurred vision, double vision, ear bleeding, ear discharge, ear drainage, ear pain, ear ringing, eye pain, eye redness, hearing loss, mouth pain, mouth swelling, nasal discharge, nose bleeding, nose congestion, nose pain, photophobia, tearing, throat pain, throat swelling, voice changes, others Respiratory: reports: shortness of breath; denies: cough, hemoptysis, orthopnea, SOB at rest, SOB with excertion, stridor, wheezing, others Cardiovascular: denies: chest pain, dizzy spells, diaphoresis, Dyspnea on exertion, edema, irregular heart beat, left arm pain, lightheadedness, palpitations, PND, syncope, others Gastrointestinal: denies: abdomen distended, abdominal pain, blood streaked bowels, constipated, diarrhea, dysphagia, difficulty swallowing, hematemesis, melena, nausea, poor appetite, poor fluid intake, rectal bleeding, rectal pain, vomiting, others Genitourinary: denies: burning, dysuria, flank pain, frequency, hematuria, incontinence, penile discharge, penile sore, pain, testicle pain, testicle swelling, urgency, others Neurological: denies: dizziness, fainting, headache, left sided numbness, left sided weakness, numbness, paresthesia, pre-existing deficit, right sided numbness, right sided weakness, seizure, speech problems, tingling, tremors, weakness, others Musculoskeletal: denies: back pain, gout, joint pain, joint swelling, muscle pain, muscle stiffness, neck pain, others Integumetry: denies: bruises, change in color, change in hair/nails, dryness, laceration, lesions, lumps, rash, wounds, others Allergic/Immunocompromised: denies: Difficulty Healing, Frequent Infections, Hives, Itching, others Hematologic/Lymphatic: denies: anemia, blood clots, easy bleeding, easy bruising, swollen glands, others Endocrine: denies: excessive hunger, excessive sweating, excessive thirst, excessive urination, flushing, intolerance to cold, intolerance to heat, unexplained weight gain, unexplained weight loss, others Psychiatric: reports: anxiety; denies: bipolar disorder, depression, hopeless, panic disorder, schizophrenia, sleepless, suicidal, others All Other Systems: Reviewed and Negative Physical Exam General Appearance: No Apparent Distress HEENT: Normal ENT Inspection, Pharynx Normal, TMs Normal Neck: Full Range of Motion, Non-Tender, Normal, Normal Inspection Respiratory: Chest Non-Tender, Lungs Clear, No Accessory Muscle Use, No Respiratory Distress, Normal Breath Sounds Cardiovascular: No Edema, No JVD, No Murmur, No Gallop, Normal Peripheral Pulses, Regular Rate/Rhythm Breast Exam: Deferred Gastrointestinal: No Organomegaly, Non Tender, No Pulsatile Mass, Normal Bowel Sounds, Soft Genitalia: Deferred Pelvic: Deferred Rectal: Deferred Extremities: No calf tenderness, Normal capillary refill, Normal inspection, Normal range of motion, Non-tender, No pedal edema Musculoskeletal : Apperance: Normal Neurologic: Alert, observer gravity prospecting II-XII nml as Tested, No Motor Deficits, No Sensory De ficits, Other (Anxiety) Cerebellar Function: Normal Reflexes: Normal Skin: Dry, Normal Color, Warm Lymphatic: No Adenopathy Was a procedure done? Was a procedure done?: No Differential Dx Considerations may include: ANXIETY X-Ray, Labs, Meds, VS Vital Signs Date Time Temp Pulse Resp B/P (MAP) Pulse Ox O2 Delivery O2 Flow Rate FiO2 04/11/24 16:08 Room Air* 0 21 04/11/24 16:07 97.9 96 16 125/76 (92) 95 97.9 04/11/24 16:01 97.8 106 18 127/67 (87) 97 Current Medications Medications (Trade) Dose Ordered Sig/Joy Route Start Time Stop Time Status Last Admin Lorazepam (Ativan Tablet) 1 mg ONCE ONCE PO 04/11/24 16:00 04/11/24 16:01 DC 04/11/24 16:08 The patient was given Ativan 1 mg p.o. The patient was being discharged The patient will return to the emergency department's condition worsens The patient will follow up with the primary care doctor. Time of 1ST Reevaluation: 16:20 Reevaluation 1ST: Unchanged Patient Education/Counseling: Diagnosis, Treatment, Prognosis, Need For Follow Up Family Education/Counseling: No Family Present Departure 1 Departure Time of Disposition: 16:14 Impression: Primary Impression: Acute anxiety Disposition: 01 HOME / SELF CARE / HOMELESS Condition: Fair e-Prescriptions Lorazepam (Lorazepam) 1 Mg Tab 1 TAB PO TID PRN, #15 TAB prn anxiety Prov: SERGEY NIEVES MD 04/11/24 Discharged With: Self Critical Care Note Critical Care Time?: No Stability Stability form required: No Heart Score Heart Score: Heart Score Response (Comments) Value History N/A 0 EKG N/A 0 Age N/A 0 Risk Factors N/A 0 Troponin N/A 0 Total 0 I personally scribed for SERGEY NIEVES MD ([email or web address]) on 04/11/24 at 15:54. Electronically submitted by Geno Lopez ([email or web address]). SERGEY NIEVES MD Apr 11, 2024 15:54
[2024-04-11 16:07] VITALS: BP 125/76; PULSE 96; RESP 16; TEMP 97.9; O2SAT 95
[2024-04-11] MEDS: LORazepam 0.5 MG TAB PO ONE (16:08)
[2024-04-11] MEDS ORDERED: LORA-1123 PO (16:13)
== END 2024-04-11 16:19 | disposition home or self-care (01) ==
LOC: ER 15:31
DX: F41.9 Anxiety disorder, unspecified (principal); I10 Essential (primary) hypertension; F17.210 Nicotine dependence, cigarettes, uncomplicated; Z79.899 Other long term (current) drug therapy; Z91.148 Patient's other noncompliance with medication regimen for other reason

== ENCOUNTER 2024-04-12 10:18 | Emergency (ER) | payer MEDICAID ==
[~2024-04-12] VITALS: Ht 193 cm; Wt 61.3 kg
--- NOTE | 2024-04-12 10:30 | ED.PDOC ---
Psychiatric HPI Comments 38 year old male DANIEL presents to the ED with chief complaint of anxiety. Patient reports that he has been experiencing episodes of anxiety for the past year, but has been increasingly worse over the past month. EMS relays patient was seen at the [facility]one clinic today when after he finished treatment, described his feelings of anxiety and that is when 911 was called. EMS states patient's vital signs were normal and no treatment was needed to be given. Patient notes he took Ativan and Xanax earlier in the morning. Patient denies any SI, HI, AH, VH, dizziness, or headache. Patient was seen on 04/11/24 and 04/04/24 for the same complaint of anxiety. Chief Complaint: Anxiety Time Seen by MD: 10:28 Primary Care Provider: unknown Reviewed Notes: Nurses Notes, Poison Information Specialist Notes, Medications, Allergies Information Source: Patient, Emergency Med Personnel Mode of Arrival: EMS Severity: Able to Care for Self, Able to Control Self Severity of Pain: None Severity of Mental Status: Moderate Severity of Symptoms: Moderate Timing: Days Duration: Since onset Prehospital treatment: None Presents with: Anxiety Ingestion: None Circumstance: None Current substance abuse: None Stressors: Family History of: Anxiety, Substance Abuse, Detox Treatment Associated signs and symptoms: Anxiety Past Medical History PAST MEDICAL HISTORY: Anxiety, HTN Surgical History: Denies all surgeries Family History Family History: Reviewed,noncontributory to illness Social History Smoker: Cigarettes, Less Than 1 Pack/Day Alcohol: Occasionally Drugs: Methamphetamine Lives In: Home Constitutional: denies: chills, diaphoresis, fatigue, fever, malaise, sweats, weakness, others EENTM: denies: blurred vision, double vision, ear bleeding, ear discharge, ear drainage, ear pain, ear ringing, eye pain, eye redness, hearing loss, mouth pain, mouth swelling, nasal discharge, nose bleeding, nose congestion, nose pain, photophobia, tearing, throat pain, throat swelling, voice changes, others Respiratory: denies: cough, hemoptysis, orthopnea, SOB at rest, shortness of breath, SOB with excertion, stridor, wheezing, others Cardiovascular: denies: chest pain, dizzy spells, diaphoresis, Dyspnea on exertion, edema, irregular heart beat, left arm pain, lightheadedness, palpitations, PND, syncope, others Gastrointestinal: denies: abdomen distended, abdominal pain, blood streaked bowels, constipated, diarrhea, dysphagia, difficulty swallowing, hematemesis, melena, nausea, poor appetite, poor fluid intake, rectal bleeding, rectal pain, vomiting, others Genitourinary: denies: burning, dysuria, flank pain, frequency, hematuria, incontinence, penile discharge, penile sore, pain, testicle pain, testicle swelling, urgency, others Neurological: denies: dizziness, fainting, headache, left sided numbness, left sided weakness, numbness, paresthesia, pre-existing deficit, right sided numbness, right sided weakness, seizure, speech problems, tingling, tremors, weakness, others Musculoskeletal: denies: back pain, gout, joint pain, joint swelling, muscle pain, muscle stiffness, neck pain, others Integumetry: denies: bruises, change in color, change in hair/nails, dryness, laceration, lesions, lumps, rash, wounds, others Allergic/Immunocompromised: denies: Difficulty Healing, Frequent Infections, Hives, Itching, others Hematologic/Lymphatic: denies: anemia, blood clots, easy bleeding, easy bruising, swollen glands, others Endocrine: denies: excessive hunger, excessive sweating, excessive thirst, excessive urination, flushing, intolerance to cold, intolerance to heat, unexplained weight gain, unexplained weight loss, others Psychiatric: reports: anxiety; denies: bipolar disorder, depression, hopeless, panic disorder, schizophrenia, sleepless, suicidal, others All Other Systems: Reviewed and Negative Physical Exam General Appearance: Moderate Distress, Normal HEENT: Normal ENT Inspection, PERRL/EOMI Neck: Full Range of Motion, Non-Tender, Normal, Normal Inspection Respiratory: Chest Non-Tender, Lungs Clear, No Accessory Muscle Use, No Respiratory Distress, Normal Breath Sounds Cardiovascular: No Edema, No JVD, No Murmur, No Gallop, Normal Peripheral Pulses, Regular Rate/Rhythm Breast Exam: Deferred Gastrointestinal: No Organomegaly, Non Tender, No Pulsatile Mass, Normal Bowel Sounds, Soft Genitalia: Deferred Pelvic: Deferred Rectal: Deferred Extremities: No calf tenderness, Normal capillary refill, Normal inspection, Normal range of motion, Non-tender, No pedal edema Musculoskeletal : Apperance: Normal Neurologic: Alert, 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 Was a procedure done?: No Psych Differential Dx Psych. Differential Dx: Anxiety X-Ray, Labs, Meds, VS Vital Signs Date Time Temp Pulse Resp B/P (MAP) Pulse Ox O2 Delivery O2 Flow Rate FiO2 04/12/24 10:34 83 04/12/24 10:27 77 16 120/74 (89) 97 Patient alert. Anxious. Vitals stable. Answering all questions. Denies suicidal or homicidal ideation. He is on methadone. Reviewed his previous visit. Explained to the patient. Was told to follow up with his primary care physician. Was told to come back if there is any problem. Time of 1ST Reevaluation: 11:28 Reevaluation 1ST: Improved Patient Education/Counseling: Diagnosis, Treatment Family Education/Counseling: No Family Present Additional Information I reviewed the following notes from patient's past medical encounters: 04/11/24 and 04/04/24 for anxiety The following tests were ordered, and results were reviewed by me: UDS, EKG Additional Information was gathered from interviewing the following independent historians: EMS I reviewed and agreed with the following test results read by other providers: None I discussed treatment and results with medical personnel. Departure 1 Departure Time of Disposition: 10:41 Impression: Primary Impression: Anxiety Disposition: 01 HOME / SELF CARE / HOMELESS Condition: Good Discharged With: Self Critical Care Note Critical Care Time?: No Stability Stability form required: No Heart Score Heart Score: Heart Score Response (Comments) Value History N/A 0 EKG N/A 0 Age N/A 0 Risk Factors N/A 0 Troponin N/A 0 Total 0 I personally scribed for KRYSTEN VAZQUEZ MD ([email or web address]) on 04/12/24 at 10:30. Electronically submitted by Prashanth Aleman ([email or web address]). I personally scribed for KRYSTEN VAZQUEZ MD ([email or web address]) on 04/12/24 at 10:56. Electronically submitted by Prashanth Aleman ([email or web address]). KRYSTEN VAZQUEZ MD Apr 12, 2024 10:30
--- NOTE | 2024-04-12 10:41 | ECG ---
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
[2024-04-12 11:16] VITALS: BP 106/63; PULSE 108; RESP 16; TEMP 97.7; O2SAT 98
[2024-04-12] MEDS: LORazepam 0.5 MG TAB PO ONE (11:22)
[2024-04-12 12:04] LABS: Barbiturate Scree,Urine Neg (NEGATIVE); Benzodiazephine Screen, Urine Neg (NEGATIVE)
[2024-04-12 12:05] LABS: Phencyclidine Screen, Urine Neg (NEGATIVE)
[2024-04-12 12:11] LABS: Amphetamine Screen, Urine Neg (NEGATIVE); Cannabinoid Screen, Urine Neg (NEGATIVE); Cocaine Screen, Urine Neg (NEGATIVE); Opiate Scree,Urine Neg (NEGATIVE)
== END 2024-04-12 12:26 | disposition home or self-care (01) ==
LOC: EDBD 10:18 → ER 10:22
DX: F41.9 Anxiety disorder, unspecified (principal); I10 Essential (primary) hypertension; F17.210 Nicotine dependence, cigarettes, uncomplicated; F19.90 Other psychoactive substance use, unspecified, uncomplicated
CPT/HCPCS: 80307; 93005

== ENCOUNTER 2024-04-12 16:31 | Emergency (ER) | payer MEDICAID ==
[~2024-04-12] VITALS: Ht 182.9 cm; Wt 71.0 kg
[2024-04-12 16:46] VITALS: BP 114/68; PULSE 99; RESP 18; O2SAT 94
--- NOTE | 2024-04-12 18:22 | ED.PDOC ---
History of Present Illness HPI Comments 38 y/o M presents to the ED for CC of anxiety. Patient was seen at [facility] at 1030 today (04/12/24) and was departed; patient states his anxiety symptoms have not improved since last being seen. Patient was seen for the same complaint twice this month on 04/11/24 and 04/04/24. Patient denies any suicidal ideation, homicidal ideation, auditory hallucinations, or visual hallucinations. Chief Complaint: Anxiety Time Seen by MD: 18:10 Primary Care Provider: KATTY Shaw Notes: Nurses Notes, Medications, Allergies (Allergies listed above) Allergies: Coded Allergies: Olanzapine (Verified Allergy, Unknown, 10/17/22) Trazodone (Verified Allergy, Unknown, 04/12/24) Home Meds Active Scripts Lorazepam (Lorazepam) 1 Mg Tab, 1 TAB PO TID PRN, #15 TAB prn anxiety Prov:SERGEY NIEVES MD 04/11/24 Alprazolam (Xanax) 0.5 Mg Tb, 1 TAB PO BID, #14 TAB Prov:JAD SEXTON 02/11/24 Reported Medications Montelukast Sodium (SINGULAIR TABLET) 10 Mg Tb 11/28/12 [[id number] Mg] (Methocarbamol) 500 MG TAB No Conflict Check, MG 11/28/12 [Hydrocodone/Ace1 Ta9] (Hydrocodone/Acetaminophen) 1 TAB TAB No Conflict Check, TAB 11/28/12 [Benazepril Hcl40 Mg] (Benazepril Hcl) 40 MG TAB No Conflict Check, MG 11/28/12 Information Source: Patient Mode of Arrival: Ambulatory Severity: Mild Timing: Days Duration: Since onset Prehospital treatment: None Associated signs and symptoms The patient is exhibiting signs of anxiety Past Medical History PAST MEDICAL HISTORY: Anxiety, HTN Surgical History: Denies all surgeries Family History Family History: Reviewed,noncontributory to illness Social History Smoker: Cigarettes, Less Than 1 Pack/Day Alcohol: Occasionally Drugs: Methamphetamine Lives In: Home Constitutional: denies: chills, diaphoresis, fatigue, fever, malaise, sweats, weakness, others EENTM: denies: blurred vision, double vision, ear bleeding, ear discharge, ear drainage, ear pain, ear ringing, eye pain, eye redness, hearing loss, mouth pain, mouth swelling, nasal discharge, nose bleeding, nose congestion, nose pain, photophobia, tearing, throat pain, throat swelling, voice changes, others Respiratory: denies: cough, hemoptysis, orthopnea, SOB at rest, shortness of breath, SOB with excertion, stridor, wheezing, others Cardiovascular: denies: chest pain, dizzy spells, diaphoresis, Dyspnea on exertion, edema, irregular heart beat, left arm pain, lightheadedness, palpitations, PND, syncope, others Gastrointestinal: denies: abdomen distended, abdominal pain, blood streaked bowels, constipated, diarrhea, dysphagia, difficulty swallowing, hematemesis, melena, nausea, poor appetite, poor fluid intake, rectal bleeding, rectal pain, vomiting, others Genitourinary: denies: burning, dysuria, flank pain, frequency, hematuria, incontinence, penile discharge, penile sore, pain, testicle pain, testicle swelling, urgency, others Neurological: denies: dizziness, fainting, headache, left sided numbness, left sided weakness, numbness, paresthesia, pre-existing deficit, right sided numbness, right sided weakness, seizure, speech problems, tingling, tremors, weakness, others Musculoskeletal: denies: back pain, gout, joint pain, joint swelling, muscle pain, muscle stiffness, neck pain, others Integumetry: denies: bruises, change in color, change in hair/nails, dryness, laceration, lesions, lumps, rash, wounds, others Allergic/Immunocompromised: denies: Difficulty Healing, Frequent Infections, Hives, Itching, others Hematologic/Lymphatic: denies: anemia, blood clots, easy bleeding, easy bruising, swollen glands, others Endocrine: denies: excessive hunger, excessive sweating, excessive thirst, excessive urination, flushing, intolerance to cold, intolerance to heat, unexplained weight gain, unexplained weight loss, others Psychiatric: reports: anxiety; denies: bipolar disorder, depression, hopeless, panic disorder, schizophrenia, sleepless, suicidal, others All Other Systems: Reviewed and Negative Physical Exam General Appearance: No Apparent Distress HEENT: Normal ENT Inspection, Pharynx Normal, TMs Normal Neck: Full Range of Motion, Non-Tender, Normal, Normal Inspection Respiratory: Chest Non-Tender, Lungs Clear, No Accessory Muscle Use, No Respiratory Distress, Normal Breath Sounds Cardiovascular: No Edema, No JVD, No Murmur, No Gallop, Normal Peripheral Pulses, Regular Rate/Rhythm Breast Exam: Deferred Gastrointestinal: No Organomegaly, Non Tender, No Pulsatile Mass, Normal Bowel Sounds, Soft Genitalia: Deferred Pelvic: Deferred Rectal: Deferred Extremities: No calf tenderness, Normal capillary refill, Normal inspection, Normal range of motion, Non-tender, No pedal edema Musculoskeletal : Apperance: Normal Neurologic: Alert, radiology tech II-XII nml as Tested, No Motor Deficits, Normal Affect, Normal Mood, No Sensory Deficits Cerebellar Function: Normal Reflexes: Normal Skin: Dry, Normal Color, Warm Lymphatic: No Adenopathy Was a procedure done? Was a procedure done?: No Differential Dx Considerations may include: anxiety attack X-Ray, Labs, Meds, VS Vital Signs Date Time Temp Pulse Resp B/P (MAP) Pulse Ox O2 Delivery O2 Flow Rate FiO2 04/12/24 16:46 99.0 99 18 114/68 (83) 94 The patient was told to follow up with his primary care doctor The patient will return to the emergency department's condition worsens The diagnosis is anxiety Time of 1ST Reevaluation: 18:40 Reevaluation 1ST: Unchanged Patient Education/Counseling: Diagnosis, Treatment, Prognosis, Need For Follow Up Family Education/Counseling: No Family Present Departure 1 Departure Time of Disposition: 18:37 Impression: Primary Impression: Anxiety reaction Disposition: 01 HOME / SELF CARE / HOMELESS Condition: Fair Discharged With: Self Critical Care Note Critical Care Time?: No Stability Stability form required: No Heart Score Heart Score: Heart Score Response (Comments) Value History N/A 0 EKG N/A 0 Age N/A 0 Risk Factors N/A 0 Troponin N/A 0 Total 0 I personally scribed for SERGEY NIEVES MD ([email or web address]) on 04/12/24 at 18:22. Electronically submitted by Geno Lopez ([email or web address]). SERGEY NIEVES MD Apr 12, 2024 18:22
== END 2024-04-12 21:08 | disposition home or self-care (01) ==
LOC: ER 16:41
DX: F41.1 Generalized anxiety disorder (principal); I10 Essential (primary) hypertension; F17.210 Nicotine dependence, cigarettes, uncomplicated; F15.90 Other stimulant use, unspecified, uncomplicated; Z88.8 Allergy status to other drugs, medicaments and biological substances; Z88.6 Allergy status to analgesic agent; Z79.899 Other long term (current) drug therapy

== ENCOUNTER 2024-04-18 17:29 | Emergency (ER) | payer MEDICAID ==
[~2024-04-18] VITALS: Ht 185.4 cm; Wt 66.7 kg
[2024-04-18 17:44] VITALS: BP 122/79; PULSE 138; RESP 18; O2SAT 98
[2024-04-18] MEDS ORDERED: GABAPENTIN 300 MG CAP PO ONE (18:15)
[2024-04-18] MEDS ORDERED: hydrOXYzine 25 MG TAB or CAP PO ONE (18:15)
--- NOTE | 2024-04-18 18:58 | ED.PDOC ---
Psychiatric HPI Comments 38y M who presents to the ED for chief complaint of anxiety. Pt states he has been stressed and been feeling anxious. Pt states he went to crisis center and states they were not able to help him because he already has daily counseling and pt states he came to the ED his complaints. Pt in the ED, otherwise denies suicidal or homicidal ideations at this time. Pt denies auditory or visual hallucinations. Pt otherwise denies any other symptoms at this time. Chief Complaint: Anxiety Time Seen by MD: 18:57 Primary Care Provider: KATTY Shaw Notes: Nurses Notes Information Source: Patient Mode of Arrival: Ambulatory Past Medical History PAST MEDICAL HISTORY: Anxiety, HTN Surgical History: Denies all surgeries Family History Family History: Reviewed,noncontributory to illness Social History Smoker: Cigarettes, Less Than 1 Pack/Day Alcohol: Occasionally Drugs: Methamphetamine Lives In: Home Constitutional: denies: chills, diaphoresis, fatigue, fever, malaise, sweats, weakness, others EENTM: denies: blurred vision, double vision, ear bleeding, ear discharge, ear drainage, ear pain, ear ringing, eye pain, eye redness, hearing loss, mouth pain, mouth swelling, nasal discharge, nose bleeding, nose congestion, nose pain, photophobia, tearing, throat pain, throat swelling, voice changes, others Respiratory: denies: cough, hemoptysis, orthopnea, SOB at rest, shortness of breath, SOB with excertion, stridor, wheezing, others Cardiovascular: denies: chest pain, dizzy spells, diaphoresis, Dyspnea on exertion, edema, irregular heart beat, left arm pain, lightheadedness, palpitations, PND, syncope, others Gastrointestinal: denies: abdomen distended, abdominal pain, blood streaked bowels, constipated, diarrhea, dysphagia, difficulty swallowing, hematemesis, melena, nausea, poor appetite, poor fluid intake, rectal bleeding, rectal pain, vomiting, others Genitourinary: denies: burning, dysuria, flank pain, frequency, hematuria, incontinence, penile discharge, penile sore, pain, testicle pain, testicle swelling, urgency, others Neurological: denies: dizziness, fainting, headache, left sided numbness, left sided weakness, numbness, paresthesia, pre-existing deficit, right sided numbness, right sided weakness, seizure, speech problems, tingling, tremors, weakness, others Musculoskeletal: denies: back pain, gout, joint pain, joint swelling, muscle pain, muscle stiffness, neck pain, others Integumetry: denies: bruises, change in color, change in hair/nails, dryness, laceration, lesions, lumps, rash, wounds, others Allergic/Immunocompromised: denies: Difficulty Healing, Frequent Infections, Hives, Itching, others Hematologic/Lymphatic: denies: anemia, blood clots, easy bleeding, easy bruising, swollen glands, others Endocrine: denies: excessive hunger, excessive sweating, excessive thirst, excessive urination, flushing, intolerance to cold, intolerance to heat, unexplained weight gain, unexplained weight loss, others Psychiatric: reports: anxiety; denies: bipolar disorder, depression, hopeless, panic disorder, schizophrenia, sleepless, suicidal, others All Other Systems: Reviewed and Negative Physical Exam General Appearance: Moderate Distress, Normal HEENT: Normal ENT Inspection, Pharynx Normal, TMs Normal Neck: Full Range of Motion, Non-Tender, Normal, Normal Inspection Respiratory: Chest Non-Tender, Lungs Clear, No Accessory Muscle Use, No Respiratory Distress, Normal Breath Sounds Cardiovascular: Tachycardia Breast Exam: Deferred Gastrointestinal: No Organomegaly, Non Tender, No Pulsatile Mass, Normal Bowel Sounds, Soft Genitalia: Deferred Pelvic: Deferred Rectal: Deferred Extremities: No calf tenderness, Normal capillary refill, Normal inspection, Normal range of motion, Non-tender, No pedal edema Musculoskeletal : Apperance: Normal Neurologic: Other (anxious affect, no SI, no HI, GCS 15) Cerebellar Function: Normal Reflexes: Normal Skin: Dry, Normal Color, Warm Lymphatic: No Adenopathy Was a procedure done? Was a procedure done?: No Psych Differential Dx Psych. Differential Dx: Anxiety, Depression Intoxication Differential Dx: Drug-Induced Psychosis, Substance Abuse Disorder X-Ray, Labs, Meds, VS Vital Signs Date Time Temp Pulse Resp B/P (MAP) Pulse Ox O2 Delivery O2 Flow Rate FiO2 04/18/24 17:44 98.1 138 18 122/79 (93) 98 Time of 1ST Reevaluation: 19:30 Reevaluation 1ST: Unchanged Patient Education/Counseling: Diagnosis, Treatment Family Education/Counseling: No Family Present Departure 1 Departure Time of Disposition: 20:46 Impression: Primary Impression: Atypical chest pain Additional Impression: Methamphetamine use Disposition: 07 LEFT AWOL/ELOPED Condition: Stable Discharged With: Self Critical Care Note Critical Care Time?: No Stability Stability form required: No Heart Score Heart Score: Heart Score Response (Comments) Value History Slightly Suspicious 0 EKG Repolarization Disturb 1 Age <45 0 Risk Factors 1 or 2 risk factors 1 Troponin Normal limit 0 Total 2 I personally scribed for KATE BOWMAN MD ([email or web address]) on 04/18/24 at 18:58. Electronically submitted by Carmen Amador ([email or web address]). KATE BOWMAN MD Apr 18, 2024 18:58
[2024-04-18] MEDS ORDERED: METOPROLOL TARTRATE 50 MG TAB PO ONE (20:15)
== END 2024-04-18 20:03 | disposition left against medical advice (07) ==
LOC: ER 17:29
DX: R07.89 Other chest pain (principal); F15.90 Other stimulant use, unspecified, uncomplicated; I10 Essential (primary) hypertension; F17.210 Nicotine dependence, cigarettes, uncomplicated

== ENCOUNTER 2024-04-28 10:15 | Emergency (ER) | payer MEDICAID ==
[~2024-04-28] VITALS: Ht 185.4 cm; Wt 68.9 kg
[2024-04-28] MEDS ORDERED: LORA-1123 PO (11:19)
--- NOTE | 2024-04-28 11:20 | ED.PDOC ---
History of Present Illness HPI Comments A 38 YEAR OLD MALE PRESENTS TO THE ED WITH COMPLAINT OF MEDICATION REFILL. PATIENT STATES HE HAS A HISTORY OF ANXIETY AND TAKES ATIVAN 1 MG B.I.D., BUT RECENTLY RAN OUT OF THIS MEDICATION AND WOULD LIKE A REFILL FOR THIS MEDICATION. PATIENT DENIES SI, HI, FEVER, CHILLS, SHORTNESS OF BREATH, CHEST PAIN, ABDOM INAL PAIN, NAUSEA, VOMITING, HEADACHE, OR OTHER COMPLAINTS. NO OTHER SYMPTOMS OR MODIFYING FACTORS AT THIS TIME. PATIENT IS ALERT, ORIENTED X 4, AND HAS STEADY GAIT. Chief Complaint: Anxiety Time Seen by MD: 10:48 Primary Care Provider: UNKNOWN Reviewed Notes: Nurses Notes, Medications, Allergies Allergies: Coded Allergies: Olanzapine (Verified Allergy, Unknown, 10/17/22) Trazodone (Verified Allergy, Unknown, 04/12/24) Home Meds Active Scripts Lorazepam (Lorazepam) 1 Mg Tab, 1 TAB PO BID, #14 TAB Prov:JAD SEXTON 04/28/24 Lorazepam (Lorazepam) 1 Mg Tab, 1 TAB PO TID PRN, #15 TAB prn anxiety Prov:SERGEY NIEVES MD 04/11/24 Alprazolam (Xanax) 0.5 Mg Tb, 1 TAB PO BID, #14 TAB Prov:JAD SEXTON 02/11/24 Reported Medications Montelukast Sodium (SINGULAIR TABLET) 10 Mg Tb 11/28/12 [[id number] Mg] (Methocarbamol) 500 MG TAB No Conflict Check, MG 11/28/12 [Hydrocodone/Ace1 Ta9] (Hydrocodone/Acetaminophen) 1 TAB TAB No Conflict Check, TAB 11/28/12 [Benazepril Hcl40 Mg] (Benazepril Hcl) 40 MG TAB No Conflict Check, MG 11/28/12 Information Source: Patient Mode of Arrival: Ambulatory Severity: Moderate Timing: Days Duration: Since onset, Days Prehospital treatment: None Medication Refill: For: Other (MEDICATION REFILL FOR ANXIETY MEDICATION) Past Medical History PAST MEDICAL HISTORY: Anxiety, HTN Surgical History: Denies all surgeries Family History Family History: Reviewed,noncontributory to illness Social History Smoker: Cigarettes, Less Than 1 Pack/Day Alcohol: Occasionally Drugs: Methamphetamine Lives In: Home Constitutional: denies: chills, diaphoresis, fatigue, fever, malaise, sweats, weakness, others EENTM: denies: blurred vision, double vision, ear bleeding, ear discharge, ear drainage, ear pain, ear ringing, eye pain, eye redness, hearing loss, mouth pain, mouth swelling, nasal discharge, nose bleeding, nose congestion, nose pain, photophobia, tearing, throat pain, throat swelling, voice changes, others Respiratory: denies: cough, hemoptysis, orthopnea, SOB at rest, shortness of breath, SOB with excertion, stridor, wheezing, others Cardiovascular: denies: chest pain, dizzy spells, diaphoresis, Dyspnea on exertion, edema, irregular heart beat, left arm pain, lightheadedness, palpitations, PND, syncope, others Gastrointestinal: denies: abdomen distended, abdominal pain, blood streaked bowels, constipated, diarrhea, dysphagia, difficulty swallowing, hematemesis, melena, nausea, poor appetite, poor fluid intake, rectal bleeding, rectal pain, vomiting, others Genitourinary: denies: burning, dysuria, flank pain, frequency, hematuria, incontinence, penile discharge, penile sore, pain, testicle pain, testicle swelling, urgency, others Neurological: denies: dizziness, fainting, headache, left sided numbness, left sided weakness, numbness, paresthesia, pre-existing deficit, right sided numbness, right sided weakness, seizure, speech problems, tingling, tremors, weakness, others Musculoskeletal: denies: back pain, gout, joint pain, joint swelling, muscle pain, muscle stiffness, neck pain, others Integumetry: denies: bruises, change in color, change in hair/nails, dryness, laceration, lesions, lumps, rash, wounds, others Allergic/Immunocompromised: denies: Difficulty Healing, Frequent Infections, Hives, Itching, others Hematologic/Lymphatic: denies: anemia, blood clots, easy bleeding, easy bruising, swollen glands, others Endocrine: denies: excessive hunger, excessive sweating, excessive thirst, excessive urination, flushing, intolerance to cold, intolerance to heat, unexplained weight gain, unexplained weight loss, others Psychiatric: reports: anxiety; denies: bipolar disorder, depression, hopeless, panic disorder, schizophrenia, sleepless, suicidal, others All Other Systems: Reviewed and Negative Physical Exam General Appearance: No Apparent Distress, Normal HEENT: Normal ENT Inspection, PERRL/EOMI, Pharynx Normal, TMs Normal Neck: Full Range of Motion, Non-Tender, Normal, Normal Inspection Respiratory: Chest Non-Tender, Lungs Clear, No Accessory Muscle Use, No Respiratory Distress, Normal Breath Sounds Cardiovascular: No Edema, No JVD, No Murmur, No Gallop, Normal Peripheral Pulses, Regular Rate/Rhythm Breast Exam: Deferred Gastrointestinal: No Organomegaly, Non Tender, No Pulsatile Mass, Normal Bowel Sounds, Soft Genitalia: Deferred Pelvic: Deferred Rectal: Deferred Extremities: No calf tenderness, Normal capillary refill, Normal inspection, Normal range of motion, Non-tender, No pedal edema Musculoskeletal : Apperance: Normal Neurologic: Alert, employer relations representative II-XII nml as Tested, No Motor Deficits, Normal Affect, Normal Mood, No Sensory Deficits Cerebellar Function: Normal Reflexes: Normal Skin: Dry, Normal Color, Warm Peripheral Pulses: 2+ carotid (R), 2+ carotid (L) Lymphatic: No Adenopathy Was a procedure done? Was a procedure done?: No Differential Dx Considerations may include: MEDICATION REFILL, HISTORY OF ANXIETY X-Ray, Labs, Meds, VS Vital Signs Date Time Temp Pulse Resp B/P (MAP) Pulse Ox O2 Delivery O2 Flow Rate FiO2 04/28/24 11:22 99.3 136 22 116/87 (97) 100 99.3 04/28/24 10:47 99.3 136 22 116/87 (97) 100 X-Ray, Labs, Meds, VS Comment EXTERNAL MEDICAL RECORDS REVIEWED: [NONE] INDEPENDENT HISTORIANS: [NONE] SOCIAL DETERMINANTS OF HEALTH: [NONE] LABS ORDERED: NONE REVIEWED AND INTERPRETED RESULTS: NONE IMAGING ORDERED: NONE TREATMENTS ORDERED: NONE PROCEDURES PERFORMED: NONE CRITICAL CARE TIME: NONE I HAVE DISCUSSED THE PATIENT WITH THE ATTENDING PHYSICIAN DR. NIEVES AND HE AGREES WITH THE PATIENT'S PLAN OF CARE AND DISPOSITION. BASED ON HISTORY OF PRESENT ILLNESS, AND PHYSICAL EXAM, PATIENT WILL BE DISCHARGED HOME. DISCUSSED PLAN FOR DISCHARGE HOME WITH RX [ATIVAN 1 MG]. MEDICATION WARNINGS GIVEN. SHARED DECISION MAKING: PATIENT INSTRUCTED TO FOLLOW UP WITH PRIMARY CARE PROVIDER IN 1-2 DAYS FOR RE-EVALUATION OF SYMPTOMS. PATIENT VERBALIZES UNDERSTANDING TO RETURN TO ED FOR NEW OR WORSENING SYMPTOMS OR IF FOLLOW UP WITH PCP CANNOT BE OBTAINED. PATIENT FEELS COMFORTABLE GOING HOME AT THIS TIME. ALL QUESTIONS ADDRESSED AT TIME OF DISCHARGE. Time of 1ST Reevaluation: 11:30 Reevaluation 1ST: Improved Patient Education/Counseling: Diagnosis, Treatment, Need For Follow Up Family Education/Counseling: Diagnosis, Treatment, Need For Follow Up Medical Screening: No EMC Exist At This Time Departure 1 Departure Time of Disposition: 11:30 Impression: Primary Impression: Encounter for medication refill Additional Impression: History of anxiety Disposition: 01 HOME / SELF CARE / HOMELESS Condition: Stable Additional Instructions: FOLLOW-UP WITH PCP IN 1 TO 2 DAYS. TAKE MEDICATIONS PRESCRIBED. RETURN TO ED FOR ANY NEW OR WORSENING SYMPTOMS. e-Prescriptions Lorazepam (Lorazepam) 1 Mg Tab 1 TAB PO BID, #14 TAB Prov: JAD SEXTON 04/28/24 Discharged With: Self Critical Care Note Critical Care Time?: No Stability Stability form required: No I personally scribed for JAD SEXTON ([email or web address]) on 04/28/24 at 11:20. Electronically submitted by Abbe Kirkpatrick ([email or web address]). JAD SEXTON Apr 28, 2024 11:20
[2024-04-28 11:22] VITALS: BP 116/87; PULSE 136; RESP 22; TEMP 99.3; O2SAT 100
== END 2024-04-28 11:29 | disposition home or self-care (01) ==
LOC: ER 10:15
DX: F41.9 Anxiety disorder, unspecified (principal); I10 Essential (primary) hypertension; F17.210 Nicotine dependence, cigarettes, uncomplicated; F15.90 Other stimulant use, unspecified, uncomplicated; Z76.0 Encounter for issue of repeat prescription; Z79.899 Other long term (current) drug therapy; Z88.8 Allergy status to other drugs, medicaments and biological substances

== ENCOUNTER 2024-05-05 14:09 | Emergency (ER) | payer MEDICAID ==
[~2024-05-05] VITALS: Ht 182.9 cm; Wt 68.6 kg
[2024-05-05] MEDS: LORazepam 0.5 MG TAB PO ONE (14:45)
--- NOTE | 2024-05-05 15:44 | ED.PDOC ---
History of Present Illness HPI Comments 38 y/o M, wtih a history of anxiety, depression, HTN, schizoaffective disorder, and polysubstance abuse, presents with c/o anxiety, today. Patient endorses on onset of anxiety following running out his Ativan medication 2 days ago and is, now, inquiring for medication refill. He denies having any suicidal or homicidal ideations, auditory or visual hallucinations, or other associated symptoms or modifiers at this time. Chief Complaint: Anxiety Time Seen by MD: 14:40 Primary Care Provider: UNKNOWN Reviewed Notes: Nurses Notes, Medications, Allergies Allergies: Coded Allergies: Olanzapine (Verified Allergy, Unknown, 10/17/22) Trazodone (Verified Allergy, Unknown, 04/12/24) Home Meds Active Scripts Lorazepam (Lorazepam) 1 Mg Tab, 1 TAB PO BID, #14 TAB Prov:JAD SEXTON 04/28/24 Lorazepam (Lorazepam) 1 Mg Tab, 1 TAB PO TID PRN, #15 TAB prn anxiety Prov:SERGEY NIEVES MD 04/11/24 Alprazolam (Xanax) 0.5 Mg Tb, 1 TAB PO BID, #14 TAB Prov:JAD SEXTON 02/11/24 Reported Medications Montelukast Sodium (SINGULAIR TABLET) 10 Mg Tb 11/28/12 [[id number] Mg] (Methocarbamol) 500 MG TAB No Conflict Check, MG 11/28/12 [Hydrocodone/Ace1 Ta9] (Hydrocodone/Acetaminophen) 1 TAB TAB No Conflict Check, TAB 11/28/12 [Benazepril Hcl40 Mg] (Benazepril Hcl) 40 MG TAB No Conflict Check, MG 11/28/12 Information Source: Patient Mode of Arrival: Ambulatory Duration: Since onset Prehospital treatment: None Past Medical History PAST MEDICAL HISTORY: Anxiety, Depression, HTN Past Medical History (Other): schizoaffective disorder Surgical History: Denies all surgeries Family History Family History: Reviewed,noncontributory to illness Social History Smoker: Cigarettes, Less Than 1 Pack/Day Alcohol: Occasionally Drugs: Methamphetamine Lives In: Home Psychiatric: reports: anxiety All Other Systems: Reviewed and Negative (negative unless otherwise stated above or in HPI) Physical Exam General Appearance: No Apparent Distress, Normal, Other (anxious appearing ) HEENT: Normal ENT Inspection, Pharynx Normal, TMs Normal Neck: Full Range of Motion, Non-Tender, Normal, Normal Inspection Respiratory: Chest Non-Tender, Lungs Clear, No Accessory Muscle Use, No Respiratory Distress, Normal Breath Sounds Cardiovascular: No Edema, No JVD, No Murmur, No Gallop, Normal Peripheral Pulses, Regular Rate/Rhythm, Tachycardia Breast Exam: Deferred Gastrointestinal: No Organomegaly, Non Tender, No Pulsatile Mass, Normal Bowel Sounds, Soft Genitalia: Deferred Pelvic: Deferred Rectal: Deferred Extremities: No calf tenderness, Normal capillary refill, Normal inspection, Normal range of motion, Non-tender, No pedal edema Musculoskeletal : Apperance: Normal Neurologic: Alert, motorcycle technician II-XII nml as Tested, No Motor Deficits, Normal Affect, Normal Mood, No Sensory Deficits Cerebellar Function: Normal Reflexes: Normal Skin: Dry, Normal Color, Warm Lymphatic: No Adenopathy Was a procedure done? Was a procedure done?: No EKG EKG : Pulse Rate (adult): 132 [place]: Normal Cardiac Rhythm: ST Block: None Hypertrophy: None ST: Normal Differential Dx Considerations may include: schizoaffective disorder, medication refill inquiry, anxiety, DRUG ADDICTION X-Ray, Labs, Meds, VS Vital Signs Date Time Temp Pulse Resp B/P (MAP) Pulse Ox O2 Delivery O2 Flow Rate FiO2 05/05/24 16:22 71 19 97 Room Air* 0 21 05/05/24 15:55 71 18 93 Room Air 05/05/24 15:55 98.0 71 18 144/67 (92) 93 98.0 05/05/24 15:44 132 05/05/24 14:37 132 05/05/24 14:33 98.7 145 16 121/74 (90) 99 Current Medications Medications (Trade) Dose Ordered Sig/Joy Route Start Time Stop Time Status Last Admin Lorazepam (Ativan Tablet) 1 mg ONCE ONCE PO 05/05/24 14:45 05/05/24 14:46 DC 05/05/24 14:45 Time of 1ST Reevaluation: 15:10 Reevaluation 1ST: Unchanged Time of 2ND Reevaluation: 16:41 Reevaluation 2ND: Resolved Patient Education/Counseling: Diagnosis, Treatment, Prognosis, Need For Follow Up Family Education/Counseling: No Family Present Additional Information - I reviewed the following notes from patient's past medical encounters: ED physician notes on 04/04/24, 04/12/24, 04/18/24, and 04/28/24 - The following tests were ordered, and results were reviewed by me: EKG - I discussed treatments and results with medical personnel PT BECAME CALM AND hr DROPPED INTO THE 70S BEFORE ATIVAN IS EVEN GIVEN Departure 1 Departure Time of Disposition: 16:41 Impression: Primary Impression: Benzodiazepine abuse Disposition: 01 HOME / SELF CARE / HOMELESS Condition: Good Additional Instructions: SEEK HELP TO STOP USING BENZODIAZEPINE Discharged With: Self Critical Care Note Critical Care Time?: No Stability Stability form required: No I personally scribed for JAZMINE HAINES MD ([email or web address]) on 05/05/24 at 15:44. Elec tronically submitted by Sherman Luis ([email or web address]). JAZMINE HAINES MD May 05, 2024 15:44
[2024-05-05 15:55] VITALS: BP 144/67; TEMP 98
[2024-05-05 16:22] VITALS: PULSE 71; RESP 19; O2SAT 97
--- NOTE | 2024-05-08 13:16 | ECG ---
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
== END 2024-05-05 16:51 | disposition home or self-care (01) ==
LOC: ER 14:09
DX: F13.10 Sedative, hypnotic or anxiolytic abuse, uncomplicated (principal); I10 Essential (primary) hypertension; F17.210 Nicotine dependence, cigarettes, uncomplicated; F41.9 Anxiety disorder, unspecified; F32.A Depression, unspecified; F25.9 Schizoaffective disorder, unspecified; Z79.899 Other long term (current) drug therapy; Z88.8 Allergy status to other drugs, medicaments and biological substances
CPT/HCPCS: 93005

== ENCOUNTER 2024-06-05 08:30 | Emergency (ER) | payer MEDICAID ==
[~2024-06-05] VITALS: Ht 185.4 cm; Wt 70.1 kg
[2024-06-05 09:05] VITALS: BP 145/82; PULSE 111; RESP 17; TEMP 98; O2SAT 97
--- NOTE | 2024-06-05 09:06 | ED.PDOC ---
Psychiatric HPI Comments 39 year old presetns for anxiety. F/u w/ PCP but states hes had more stressors than usual this month leading to him taking more than rx dose of ativan. next apt with pcp is last week of may and next refill is june 15 Chief Complaint: Anxiety Time Seen by MD: 08:44 Primary Care Provider: none Reviewed Notes: Nurses Notes, Medications, Allergies Information Source: Patient Mode of Arrival: Ambulatory Past Medical History PAST MEDICAL HISTORY: Anxiety, Depression, HTN Surgical History: Denies all surgeries Family History Family History: Reviewed,noncontributory to illness Social History Smoker: Cigarettes, Less Than 1 Pack/Day Alcohol: Occasionally Drugs: Methamphetamine Lives In: Home All Other Systems: Reviewed and Negative (per hpi) Physical Exam General Appearance: No Apparent Distress, Normal HEENT: Normal ENT Inspection, Pharynx Normal, TMs Normal Neck: Full Range of Motion, Non-Tender, Normal, Normal Inspection Respiratory: Chest Non-Tender, Lungs Clear, No Accessory Muscle Use, No Respiratory Distress, Normal Breath Sounds Cardiovascular: No Edema, No JVD, No Murmur, No Gallop, Normal Peripheral Pulses, Regular Rate/Rhythm Breast Exam: Deferred Gastrointestinal: No Organomegaly, Non Tender, No Pulsatile Mass, Normal Bowel Sounds, Soft Genitalia: Deferred Pelvic: Deferred Rectal: Deferred Extremities: No calf tenderness, Normal capillary refill, Normal inspection, Normal range of motion, Non-tender, No pedal edema Musculoskeletal : Apperance: Normal Neurologic: Alert, stamping machine operator II-XII nml as Tested, No Motor Deficits, Normal Affect, Normal Mood, No Sensory Deficits Cerebellar Function: Normal Reflexes: Normal Skin: Dry, Normal Color, Warm Lymphatic: No Adenopathy Was a procedure done? Was a procedure done?: No Psych Differential Dx Psych. Differential Dx: Anxiety X-Ray, Labs, Meds, VS Vital Signs Date Time Temp Pulse Resp B/P (MAP) Pulse Ox O2 Delivery O2 Flow Rate FiO2 06/05/24 09:05 111 17 97 Room Air 06/05/24 09:05 98.0 111 17 145/82 (103) 97 98.0 06/05/24 08:38 98.0 111 17 145/82 (103) 97 98.0 Current Medications Medications (Trade) Dose Ordered Sig/Joy Route Start Time Stop Time Status Last Admin Lorazepam (Ativan Tablet) 1 mg ONCE ONCE PO 06/05/24 09:15 06/05/24 09:17 DC 06/05/24 09:22 X-Ray, Labs, Meds, VS Comment FRANCISCO WANG Sold: 05/18/2024 Filled: 05/18/2024 LORAZEPAM Refill 0 of 0 1 MG TAB Days: 30 Qty: 60 Daily: N/A Total: N/A YANE ALANIZ MD HAI: [id number] [facility] #[id number] Pharmacy #: [id number] Serialized Rx: NOT REPORTED Pharmacy Rx: [id number] Signs and symptoms are most consistent with anxiety. There appears to be no evidence of cardiac disease or arrhythmia. No evidence of hypoxia or pulmonary process. VSS. Ativan x 1 in the ER Advised to f/u with PCP and return precautions discussed Time of 1ST Reevaluation: 09:05 Reevaluation 1ST: Improved Patient Education/Counseling: Diagnosis, Treatment Family Education/Counseling: Diagnosis, Treatment Departure 1 Departure Time of Disposition: 09:30 Impression: Primary Impression: Acute anxiety Disposition: 01 HOME / SELF CARE / HOMELESS Condition: Stable Discharged With: Self Critical Care Note Critical Care Time?: No Stability Stability form required: No Heart Score Heart Score: Heart Score Response (Comments) Value History N/A 0 EKG N/A 0 Age N/A 0 Risk Factors N/A 0 Troponin N/A 0 Total 0 SHAHID FRIEDMAN NP Jun 05, 2024 09:06
[2024-06-05] MEDS: LORazepam 0.5 MG TAB PO ONE (09:22)
== END 2024-06-05 09:26 | disposition home or self-care (01) ==
LOC: ER 08:30
DX: F41.9 Anxiety disorder, unspecified (principal); F32.9 Major depressive disorder, single episode, unspecified; F17.210 Nicotine dependence, cigarettes, uncomplicated; I10 Essential (primary) hypertension; Z79.899 Other long term (current) drug therapy

== ENCOUNTER 2024-06-12 08:14 | Emergency (ER) | payer MEDICAID ==
[~2024-06-12] VITALS: Ht 175.3 cm; Wt 71.1 kg
[2024-06-12] MEDS: LORazepam 0.5 MG TAB PO ONE (09:00)
--- NOTE | 2024-06-12 09:04 | ED.PDOC ---
Psychiatric HPI Comments 39 year old M presents for acute anxiety. Seen 7 days ago for same complaint. Denies CP/SOB Chief Complaint: Anxiety Time Seen by MD: 08:19 Primary Care Provider: UNKNOWN Reviewed Notes: Nurses Notes, Medications, Allergies Information Source: Patient Mode of Arrival: Ambulatory Past Medical History PAST MEDICAL HISTORY: Anxiety, Depression, HTN Surgical History: Denies all surgeries Family History Family History: Reviewed,noncontributory to illness Social History Smoker: Cigarettes, Less Than 1 Pack/Day Alcohol: Occasionally Drugs: Methamphetamine Lives In: Home All Other Systems: Reviewed and Negative (Per HPI) Physical Exam General Appearance: No Apparent Distress, Normal HEENT: Normal ENT Inspection, Pharynx Normal, TMs Normal Neck: Full Range of Motion, Non-Tender, Normal, Normal Inspection Respiratory: Chest Non-Tender, Lungs Clear, No Accessory Muscle Use, No Respiratory Distress, Normal Breath Sounds Cardiovascular: No Edema, No JVD, No Murmur, No Gallop, Normal Peripheral Pulses, Regular Rate/Rhythm Breast Exam: Deferred Gastrointestinal: No Organomegaly, Non Tender, No Pulsatile Mass, Normal Bowel Sounds, Soft Genitalia: Deferred Pelvic: Deferred Rectal: Deferred Extremities: No calf tenderness, Normal capillary refill, Normal inspection, Normal range of motion, Non-tender, No pedal edema Musculoskeletal : Apperance: Normal Neurologic: Alert, volleyball referee II-XII nml as Tested, No Motor Deficits, Normal Affect, Normal Mood, No Sensory Deficits Cerebellar Function: Normal Reflexes: Normal Skin: Dry, Normal Color, Warm Lymphatic: No Adenopathy Was a procedure done? Was a procedure done?: No Psych Differential Dx Psych. Differential Dx: Anxiety X-Ray, Labs, Meds, VS Vital Signs Date Time Temp Pulse Resp B/P (MAP) Pulse Ox O2 Delivery O2 Flow Rate FiO2 06/12/24 09:06 107 18 100 06/12/24 09:06 99.1 107 18 127/76 (93) 100 99.1 06/12/24 08:19 99.1 107 18 127/76 (93) 100 99.1 Current Medications Medications (Trade) Dose Ordered Sig/Joy Route Start Time Stop Time Status Last Admin Lorazepam (Ativan Tablet) 1 mg ONCE ONCE PO 06/12/24 08:30 06/12/24 08:31 DC 06/12/24 09:00 X-Ray, Labs, Meds, VS Comment History and physical consistent panic attack Vital signs stable May consider brown paper bag or facemask for rebreathing. Discussed lifestyle modification Getting enough sleep/meditating/staying active and exercising/eating healthy diet Lifestyle changes can be an effective way to relieve some of the stress and a nxiety patient may cope with everyday. Most of the natural remedies consist of caring for the body, participating in healthy activities, and eliminating unhealthy ones Provided patient with mental health information and encouraged patient to speak with the therapist and psychologist Patient denies suicidal/homicidal ideation and auditory/visual hallucination Advised patient to notify a provider call urgent mental health services if symptoms recur or worsen Patient verbalized understanding Time of 1ST Reevaluation: 09:00 Reevaluation 1ST: Improved Patient Education/Counseling: Diagnosis, Treatment Family Education/Counseling: Diagnosis, Treatment Departure 1 Departure Time of Disposition: 09:04 Impression: Primary Impression: Acute anxiety Disposition: 01 HOME / SELF CARE / HOMELESS Condition: Stable Discharged With: Self Critical Care Note Critical Care Time?: No Stability Stability form required: No Heart Score Heart Score: Heart Score Response (Comments) Value History N/A 0 EKG N/A 0 Age N/A 0 Risk Factors N/A 0 Troponin N/A 0 Total 0 SHAHID FRIEDMAN NP Jun 12, 2024 09:04
[2024-06-12 09:06] VITALS: BP 127/76; PULSE 107; RESP 18; TEMP 99.1; O2SAT 100
== END 2024-06-12 09:08 | disposition home or self-care (01) ==
LOC: ER 08:14
DX: F41.9 Anxiety disorder, unspecified (principal); I10 Essential (primary) hypertension; F17.210 Nicotine dependence, cigarettes, uncomplicated

== ENCOUNTER 2024-07-10 08:49 | Emergency (ER) | payer MEDICAID ==
[~2024-07-10] VITALS: Ht 182.9 cm; Wt 67.1 kg
[2024-07-10 09:13] VITALS: BP 120/80; PULSE 84; RESP 16; TEMP 99.7; O2SAT 97
--- NOTE | 2024-07-10 09:23 | ED.PDOC ---
Psychiatric HPI Comments 39-year-old male with a pertinent MHx of anxiety presents for medication refill on his Ativan. Seen multiple times for the same complaint in the past. Reports he ran out of his medication three days ago Chief Complaint: Anxiety Time Seen by MD: 09:09 Primary Care Provider: UNKNOWN Reviewed Notes: Nurses Notes, Medications, Allergies Information Source: Patient Mode of Arrival: Ambulatory Past Medical History PAST MEDICAL HISTORY: Anxiety, Depression, HTN Surgical History: Denies all surgeries Family History Family History: Reviewed,noncontributory to illness Social History Smoker: Cigarettes, Less Than 1 Pack/Day Alcohol: Occasionally Drugs: Methamphetamine Lives In: Home All Other Systems: Reviewed and Negative (per hpi) Physical Exam General Appearance: No Apparent Distress, Normal HEENT: Normal ENT Inspection, Pharynx Normal, TMs Normal Neck: Full Range of Motion, Non-Tender, Normal, Normal Inspection Respiratory: Chest Non-Tender, Lungs Clear, No Accessory Muscle Use, No Respiratory Distress, Normal Breath Sounds Cardiovascular: No Edema, No JVD, No Murmur, No Gallop, Normal Peripheral Pulses, Regular Rate/Rhythm Breast Exam: Deferred Gastrointestinal: No Organomegaly, Non Tender, No Pulsatile Mass, Normal Bowel Sounds, Soft Genitalia: Deferred Pelvic: Deferred Rectal: Deferred Extremities: No calf tenderness, Normal capillary refill, Normal inspection, Normal range of motion, Non-tender, No pedal edema Musculoskeletal : Apperance: Normal Neurologic: Alert, profile stitching machine operator II-XII nml as Tested, No Motor Deficits, Normal Affect, Normal Mood, No Sensory Deficits Cerebellar Function: Normal Reflexes: Normal Skin: Dry, Normal Color, Warm Lymphatic: No Adenopathy Was a procedure done? Was a procedure done?: No Psych Differential Dx Psych. Differential Dx: Anxiety X-Ray, Labs, Meds, VS Vital Signs Date Time Temp Pulse Resp B/P (MAP) Pulse Ox O2 Delivery O2 Flow Rate FiO2 07/10/24 09:13 84 16 97 Room Air 07/10/24 09:13 99.7 84 16 120/80 (93) 97 99.7 07/10/24 09:02 99.7 84 16 120/80 (93) 97 99.7 X-Ray, Labs, Meds, VS Comment FRANCISCO WANG Sold: 06/16/2024 Filled: 06/16/2024 LORAZEPAM Refill 0 of 0 1 MG TAB Days: 30 Qty: 60 Daily: N/A Total: N/A YANE ALANIZ MD HAI: [id number] [facility] #[id number] Pharmacy #: [id number] Serialized Rx: NOT REPORTED Pharmacy Rx: [id number] Signs and symptoms are most consistent with anxiety. There appears to be no evidence of cardiac disease or arrhythmia. No evidence of hypoxia or pulmonary process. VSS. Discussed lifestyle modification Getting enough sleep/meditating/staying active and exercising/eating healthy diet Lifestyle changes can be an effective way to relieve some of the stress and anxiety patient may cope with everyday. Most of the natural remedies consist of caring for the body, participating in healthy activities, and eliminating unhealthy ones Provided patient with mental health information and encouraged patient to speak with the therapist and psychologist Patient denies suicidal/homicidal ideation and auditory/visual hallucination Advised patient to notify a provider call urgent mental health services if symptoms recur or worsen Patient verbalized understanding Time of 1ST Reevaluation: 09:20 Reevaluation 1ST: Improved Patient Education/Counseling: Diagnosis, Treatment Family Education/Counseling: Diagnosis, Treatment Departure 1 Departure Time of Disposition: 09:46 Impression: Primary Impression: Acute anxiety Disposition: 01 HOME / SELF CARE / HOMELESS Condition: Stable Discharged With: Self Critical Care Note Critical Care Time?: No Stability Stability form required: No Heart Score Heart Score: Heart Score Response (Comments) Value History N/A 0 EKG N/A 0 Age N/A 0 Risk Factors N/A 0 Troponin N/A 0 Total 0 SHAHID FRIEDMAN NP Jul 10, 2024 09:23
[2024-07-10] MEDS: LORazepam 0.5 MG TAB PO ONE (10:07)
== END 2024-07-10 10:10 | disposition home or self-care (01) ==
LOC: ER 08:49
DX: F41.9 Anxiety disorder, unspecified (principal); F32.A Depression, unspecified; I10 Essential (primary) hypertension; F17.210 Nicotine dependence, cigarettes, uncomplicated; F12.90 Cannabis use, unspecified, uncomplicated; Z76.0 Encounter for issue of repeat prescription

== ENCOUNTER 2024-07-16 12:02 | Emergency (ER) | payer MEDICAID ==
[~2024-07-16] VITALS: Ht 185.4 cm; Wt 68.1 kg
[2024-07-16 12:18] VITALS: BP 121/66; PULSE 69; RESP 16; TEMP 97.6; O2SAT 97
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
== END 2024-07-16 13:19 | disposition home or self-care (01) ==
LOC: ER 12:02
DX: F13.10 Sedative, hypnotic or anxiolytic abuse, uncomplicated (principal); F41.9 Anxiety disorder, unspecified; I10 Essential (primary) hypertension; F32.A Depression, unspecified; F17.210 Nicotine dependence, cigarettes, uncomplicated; Z79.899 Other long term (current) drug therapy; Z76.0 Encounter for issue of repeat prescription

== ENCOUNTER 2024-08-27 15:03 | Emergency (ER) | payer MEDICAID ==
[~2024-08-27] VITALS: Ht 185.4 cm; Wt 61.0 kg
[2024-08-27 15:51] VITALS: PULSE 131; RESP 17; O2SAT 97
[2024-08-27 15:57] LABS: Basophils # (auto) 0 10 ^3/uL (0-0.2); Basophils % (auto) 0.4 % (0.0-2.0); Eosinophils # (auto) 0 10 ^3/uL (0-0.8); Eosinophils % (auto) 0.1 % (0.0-7.0); Hematocrit 41.3 % (41.0-53.0); Lymphocytes # (auto) 2.6 10 ^3/uL (0.4-5.4); Lymphocytes % (auto) 27.3 % (10.0-50.0); Mean Corpuscular Hemoglobin 32.2 pg (28.0-32.0); Mean Corpuscular Hgb Conc. 33.9 g/dL (32.0-36.0); Mean Corpuscular Volume 95.1 fL (80.0-100.0); Monocytes # (auto) 0.6 10 ^3/uL (0-1.3); Monocytes % (auto) 6.4 % (0.0-12.0); Neutrophils # (auto) 6.2 10 ^3/uL (1.6-8.6); Neutrophils % (auto) 65.8 % (37.0-80.0); Platelet Count (auto) 375 10^3/uL (140-450); Red Blood Cells 4.34 10^6/uL (4.5-5.90); Red Cell Distribution Width 14.7 % (11.8-14.3); White Blood Cell 9.4 10^3/uL (4.4-10.8)
[2024-08-27 16:03] LABS: Urine Bacteria None Seen /hpf (None Seen)
[2024-08-27 16:04] LABS: Chloride 102 mmol/L (98-107); Potassium 3.5 mmol/L (3.5-5.1); Sodium 138 mmol/L (136-145)
[2024-08-27 16:05] LABS: Anion Gap 12 (5-15); Calcium 10.3 mg/dL (8.7-10.4); Carbon Dioxide 24 mmol/L (20-31)
[2024-08-27 16:10] LABS: Blood Urea Nitrogen 11 mg/dL (9-23); Glucose 103 mg/dL (74-106)
[2024-08-27 16:20] LABS: Urine Blood Negative /uL (Negative); Urine Clarity Clear (Clear); Urine Color Yellow (Yellow); Urine Mucus FEW (None Seen); Urine Protein, UAD TRACE (Negative); Urine Specific Gravity 1.028 (1.001-1.035); Urine Squamous Epithelial Cell FEW /hpf (<5); Urine Urobilinogen Normal (Negative); Urine WBC 1 /HPF (0-3)
[2024-08-27 16:27] LABS: Amphetamine Screen, Urine Pos (NEGATIVE); Barbiturate Scree,Urine Neg (NEGATIVE); Benzodiazephine Screen, Urine Neg (NEGATIVE); Cannabinoid Screen, Urine Pos (NEGATIVE); Cocaine Screen, Urine Neg (NEGATIVE); Opiate Scree,Urine Neg (NEGATIVE); Phencyclidine Screen, Urine Neg (NEGATIVE)
--- NOTE | 2024-08-27 16:52 | ED.PDOC ---
Psychiatric HPI Comments 39 year old male presents to the ED with a chief complaint of mental health evaluation. Patient states he was released from [facility] 2 days ago, was hospitalized due to mental health, used Methamphetamine 2 days ago. Patient is requesting help, feels like he is being followed. PMHx depression, anxiety, HTN. No other symptoms or modifying factors present at this time. Chief Complaint: Mental Health Time Seen by MD: 15:17 Primary Care Provider: UNKNOWN Reviewed Notes: Medications, Allergies Information Source: Patient Mode of Arrival: Ambulatory Severity of Mental Status: Moderate Severity of Symptoms: Moderate Timing: Hours Duration: Since onset Prehospital treatment: None Presents with: Unclear Thinking Past Medical History PAST MEDICAL HISTORY: Anxiety, Depression, HTN Surgical History: Denies all surgeries Family History Family History: Reviewed,noncontributory to illness Social History Smoker: Cigarettes, Less Than 1 Pack/Day Alcohol: Occasionally Drugs: Methamphetamine Lives In: Home Constitutional: denies: chills, diaphoresis, fatigue, fever, malaise, sweats, weakness, others EENTM: denies: blurred vision, double vision, ear bleeding, ear discharge, ear drainage, ear pain, ear ringing, eye pain, eye redness, hearing loss, mouth pain, mouth swelling, nasal discharge, nose bleeding, nose congestion, nose pain, photophobia, tearing, throat pain, throat swelling, voice changes, others Respiratory: denies: cough, hemoptysis, orthopnea, SOB at rest, shortness of breath, SOB with excertion, stridor, wheezing, others Cardiovascular: denies: chest pain, dizzy spells, diaphoresis, Dyspnea on exertion, edema, irregular heart beat, left arm pain, lightheadedness, palpitat ions, PND, syncope, others Gastrointestinal: denies: abdomen distended, abdominal pain, blood streaked bow els, constipated, diarrhea, dysphagia, difficulty swallowing, hematemesis, melena, nausea, poor appetite, poor fluid intake, rectal bleeding, rectal pain, vomiting, others Genitourinary: denies: burning, dysuria, flank pain, frequency, hematuria, incontinence, penile discharge, penile sore, pain, testicle pain, testicle swelling, urgency, others Neurological: denies: dizziness, fainting, headache, left sided numbness, left sided weakness, numbness, paresthesia, pre-existing deficit, right sided numbness, right sided weakness, seizure, speech problems, tingling, tremors, weakness, others Musculoskeletal: denies: back pain, gout, joint pain, joint swelling, muscle pain, muscle stiffness, neck pain, others Integumetry: denies: bruises, change in color, change in hair/nails, dryness, laceration, lesions, lumps, rash, wounds, others Allergic/Immunocompromised: denies: Difficulty Healing, Frequent Infections, Hives, Itching, others Hematologic/Lymphatic: denies: anemia, blood clots, easy bleeding, easy bruising, swollen glands, others Endocrine: denies: excessive hunger, excessive sweating, excessive thirst, excessive urination, flushing, intolerance to cold, intolerance to heat, unexplained weight gain, unexplained weight loss, others Psychiatric: reports: others (psychosis, drug abuse); denies: anxiety, bipolar disorder, depression, hopeless, panic disorder, schizophrenia, sleepless, suicidal All Other Systems: Reviewed and Negative Physical Exam General Appearance: Moderate Distress (Patient appears to be in mild-to- moderate distress due to anxiety related to his psychosis.), Normal HEENT: Normal ENT Inspection, Pharynx Normal, TMs Normal Neck: Full Range of Motion, Non-Tender, Normal, Normal Inspection Respiratory: Chest Non-Tender, Lungs Clear, No Accessory Muscle Use, No Respiratory Distress, Normal Breath Sounds Cardiovascular: No Edema, No JVD, No Murmur, No Gallop, Normal Peripheral Pulses, Regular Rate/Rhythm Breast Exam: Deferred Gastrointestinal: No Organomegaly, Non Tender, No Pulsatile Mass, Normal Bowel Sounds, Soft Genitalia: Deferred Pelvic: Deferred Rectal: Deferred Extremities: No calf tenderness, Normal capillary refill, Normal inspection, Normal range of motion, Non-tender, No pedal edema Musculoskeletal : Apperance: Normal Neurologic: No Motor Deficits Cerebellar Function: NOT DONE Reflexes: NOT DONE Skin: Dry, Normal Color, Warm Lymphatic: No Adenopathy Was a procedure done? Was a procedure done?: No Psych Differential Dx OD Differential Dx: Drug Overdose, Substance Abuse Intoxication Differential Dx: Alcohol Withdraw Syndrome, Drug-Induced Psychosis X-Ray, Labs, Meds, VS Vital Signs Date Time Temp Pulse Resp B/P (MAP) Pulse Ox O2 Delivery O2 Flow Rate FiO2 08/27/24 18:21 98.0 124 19 110/72 (85) 98 98.0 08/27/24 15:51 131 17 97 Room Air* 0 21 08/27/24 15:51 98.4 131 20 117/80 (92) 97 98.4 08/27/24 15:10 98.4 131 16 150/104 (119) 97 98.4 Lab Test 08/27/24 15:41 08/27/24 15:36 Range/Units White Blood Count 9.4 4.4-10.8 10^3/uL Red Blood Count 4.34 L 4.5-5.90 10^6/uL Hemoglobin 14.0 13.5-17.5 g/dL Hematocrit 41.3 41.0-53.0 % Mean Corpuscular Volume 95.1 80.0-100.0 fL Mean Corpuscular Hemoglobin 32.2 H 28.0-32.0 pg Mean Corpuscular Hemoglobin Concent 33.9 32.0-36.0 g/dL Red Cell Distribution Width 14.7 H 11.8-14.3 % Platelet Count 375 140-450 10^3/uL Mean Platelet Volume 7.2 6.9-10.8 fL Neutrophils (%) (Auto) 65.8 37.0-80.0 % Lymphocytes (%) (Auto) 27.3 10.0-50.0 % Monocytes (%) (Auto) 6.4 0.0-12.0 % Eosinophils (%) (Auto) 0.1 0.0-7.0 % Basophils (%) (Auto) 0.4 0.0-2.0 % Neutrophils # (Auto) 6.2 1.6-8.6 10 ^3/uL Lymphocytes # (Auto) 2.6 0.4-5.4 10 ^3/uL Monocytes # (Auto) 0.6 0-1.3 10 ^3/uL Eosinophils # (Auto) 0 0-0.8 10 ^3/uL Basophils # (Auto) 0 0-0.2 10 ^3/uL Nucleated Red Blood Cells 0.0 % Sodium Level 138 136-145 mmol/L Potassium Level 3.5 3.5-5.1 mmol/L Chloride Level 102 98-107 mmol/L Carbon Dioxide Level 24 20-31 mmol/L Anion Gap 12 5-15 Blood Urea Nitrogen 11 9-23 mg/dL Creatinine 1.00 0.700-1.30 mg/dL Glomerular Filtration Rate Calc 97 >90 mL/min BUN/Creatinine Ratio 11.0 10.0-20.0 Serum Glucose 103 74-106 mg/dL Calcium Level 10.3 8.7-10.4 mg/dL Urine Color Yellow Yellow Urine Clarity Clear Clear Urine pH 6.0 5.0-9.0 Urine Specific [place] 1.028 1.001-1.035 Urine Protein Trace H Negative Urine Ketones Negative Negative Urine Blood Negative Negative /uL Urine Nitrite Negative Negative Urine Bilirubin Negative Negative Urine Urobilinogen Normal Negative mg/dL Urine Leukocyte Esterase Negative Negative /uL Urine RBC <1 0 - 3 /hpf Urine Microscopic WBC 1 0-3 /HPF Urine Squamous Epithelial Cells Few <5 /hpf Urine Bacteria None seen None Seen /hpf Urine Mucus Few None Seen Urine Glucose Normal Normal mg/dL Urine Opiates Screen Neg NEGATIVE Urine Fentanyl Screen Neg NEGATIVE Urine Barbiturates Screen Neg NEGATIVE Urine Phencyclidine Screen Neg NEGATIVE Urine Amphetamines Screen Pos NEGATIVE Urine Benzodiazepines Screen Neg NEGATIVE Urine Cocaine Screen Neg NEGATIVE Urine Cannabinoids Screen Pos NEGATIVE Current Medications Medications (Trade) Dose Ordered Sig/Joy Route Start Time Stop Time Status Last Admin Haloperidol Lactate (Haldol) 5 mg ONCE ONCE IM 08/27/24 18:00 08/27/24 18:01 DC 08/27/24 18:16 Benztropine Mesylate (Cogentin Injection) 1 mg ONCE ONCE IM 08/27/24 18:00 08/27/24 18:01 DC 08/27/24 18:26 X-Ray, Labs, Meds, VS Comment All studies performed the ED were evaluated by me. Serum studies were unremarkable for any systemic concerns. Drug profile confirmed cannabis and methamphetamine use. Spoke with our psychiatrist Dr. Rivero after his evaluation of the patient. Both of us believe the patient was not in current need for placement but rather, needs to follow up with a drug rehab facility for management of his what appears to be drug-induced psychosis. Patient has a drug rehab facility available tomorrow. Time of 1ST Reevaluation: 19:33 Reevaluation 1ST: Improved Consultation: PCP, Psychiatry, Other (Drug rehab) Patient Education/Counseling: Diagnosis, Treatment, Prognosis Family Education/Counseling: Diagnosis, Treatment, No Family Present Departure 1 Departure Time of Disposition: 19:33 Impression: Primary Impression: Methamphetamine abuse Additional Impression: Drug-induced psychotic disorder Disposition: HOME / SELF CARE / HOMELESS Condition: Stable Additional Instructions: Patient has been advised to follow up with drug rehab as available tomorrow. Advised patient that if he stops methamphetamine use and continues to have psychosis concerns, returned to our facility at that time for assistance. Discharged With: Self Critical Care Note Critical Care Time?: No Stability Stability form required: No Heart Score Heart Score: Heart Score Response (Comments) Value History N/A 0 EKG N/A 0 Age N/A 0 Risk Factors N/A 0 Troponin N/A 0 Total 0 I personally scribed for FRANCISCO LAIRD PAC ([email or web address]) on 08/27/24 at 16:52. Electronically submitted by Liset Kay ([email or web address]). FRANCISCO LAIRD PAC Aug 27, 2024 16:52
[2024-08-27] MEDS: HALOPERIDOL LACTATE 5 MG/ML INJ VIAL IM ONE (18:16)
[2024-08-27 18:21] VITALS: BP 110/72; PULSE 124; RESP 19; TEMP 98; O2SAT 98
[2024-08-27] MEDS: BENZTROPINE MESYLATE (1MG/ML) 2ML VIAL IM ONE (18:26)
--- NOTE | 2024-08-27 19:28 | DVHDS2 ---
ASSESSMENT ASSESSMENT Hospital Course 39 y/o male presents to the ED seeking assistance for paranoia, drug use and homelessness. The pt was in a psychiatric facility 2 days ago. [facility]tox is +ve for amphetamines an d cannabis. Pt admits to using meth. Case was discussed with MARIO Beltran who spoke with the pt at length. The pt denied any SI, HI, did receive a dose of haldol and cogentin. Pt confided he wanted help with substance use disorder. MARIO Beltran referral [facility]. There are no safety issues or concerns, pt knows to get help when he feels he needs it (as is evident by this and multiple previous presentations to this ED). Per MARIO Beltran Pt understood that his treatment and follow-up for [facility] related issues would be best handled as an outpatient, in the community. Since there is no danger to self or others reported by the pt and no significant psychotic symptoms, MARIO Beltran agrees that pt is not a candidate for re-admission to a psychiatric facility nor a 5150. Assessment MARIO Beltran satisfied with the case discussion and did not think the pt needed anot her psych eval for low grade, substance induced paranoia, 2 days after being discharged from a psych facility. Problems: (1) Methamphetamine use AMALIA WILL MD Aug 27, 2024 19:28
== END 2024-08-27 19:54 | disposition home or self-care (01) ==
LOC: ER 15:03
DX: F15.159 Other stimulant abuse with stimulant-induced psychotic disorder, unspecified (principal); F15.10 Other stimulant abuse, uncomplicated; F41.9 Anxiety disorder, unspecified; F32.A Depression, unspecified; I10 Essential (primary) hypertension; F17.210 Nicotine dependence, cigarettes, uncomplicated; Z59.00 Homelessness unspecified
CPT/HCPCS: 36415; 80048; 80307; 81001; 85025; 96372; 99284; J0515; J1630

== ENCOUNTER 2024-12-11 13:57 | Emergency (ER) | payer MEDICAID ==
[~2024-12-11] VITALS: Ht 182.9 cm; Wt 68.7 kg
[2024-12-11 13:59] VITALS: BP 148/68; PULSE 107; TEMP 98.1
--- NOTE | 2024-12-11 14:41 | ED.PDOC ---
History of Present Illness HPI Comments 39-year-old male presents to the ER with prior medical history of asthma and a chief complaint of shortness a breath. Patient reports on having asthma attacks recently with cough and gasping for air. Patient does uses inhaler but it does not work. Patient does have an appointment with his PCP this Wednesday at 10:30 a.m., but came in today saying if we are unable to do anything for his cough/gasping for air. Denies chills, fever, N/V/D, CP. No other associated symptoms, modifiers, recent injuries or sick contacts present at this time. Chief Complaint: Shortness of Breath Time Seen by MD: 14:35 Primary Care Provider: UNKNOWN Reviewed Notes: Nurses Notes, Medications, Allergies Allergies: Coded Allergies: Olanzapine (Verified Allergy, Unknown, 10/17/22) Trazodone (Verified Allergy, Unknown, 04/12/24) Home Meds Active Scripts Lorazepam (Lorazepam) 1 Mg Tab, 1 TAB PO BID, #14 TAB Prov:JAD SEXTON 04/28/24 Lorazepam (Lorazepam) 1 Mg Tab, 1 TAB PO TID PRN, #15 TAB prn anxiety Prov:SERGEY NIEVES MD 04/11/24 Alprazolam (Xanax) 0.5 Mg Tb, 1 TAB PO BID, #14 TAB Prov:JAD SEXTON 02/11/24 Reported Medications Montelukast Sodium (SINGULAIR TABLET) 10 Mg Tb 11/28/12 [[id number] Mg] (Methocarbamol) 500 MG TAB No Conflict Check, MG 11/28/12 [Hydrocodone/Ace1 Ta9] (Hydrocodone/Acetaminophen) 1 TAB TAB No Conflict Check, TAB 11/28/12 [Benazepril Hcl40 Mg] (Benazepril Hcl) 40 MG TAB No Conflict Check, MG 11/28/12 Information Source: Patient Mode of Arrival: Ambulatory Severity: Moderate Timing: Came on: Suddenly Duration: Since onset Prehospital treatment: None Past Medical History PAST MEDICAL HISTORY: Anxiety, Asthma, Depression, HTN Surgical History: Denies all surgeries Family History Family History: Reviewed,noncontributory to illness, Unknown Social History Smoker: Cigarettes, Less Than 1 Pack/Day Alcohol: Occasionally Drugs: Methamphetamine Lives In: Home Constitutional: denies: chills, diaphoresis, fatigue, fever, malaise, sweats, weakness, others EENTM: denies: blurred vision, double vision, ear bleeding, ear discharge, ear drainage, ear pain, ear ringing, eye pain, eye redness, hearing loss, mouth pain, mouth swelling, nasal discharge, nose bleeding, nose congestion, nose pain, photophobia, tearing, throat pain, throat swelling, voice changes, others Respiratory: reports: cough, SOB at rest, shortness of breath, others (Gasping for air ); denies: hemoptysis, orthopnea, SOB with excertion, stridor, wheezing Cardiovascular: denies: chest pain, dizzy spells, diaphoresis, Dyspnea on exertion, edema, irregular heart beat, left arm pain, lightheadedness, palpitations, PND, syncope, others Gastrointestinal: denies: abdomen distended, abdominal pain, blood streaked bowels, constipated, diarrhea, dysphagia, difficulty swallowing, hematemesis, melena, nausea, poor appetite, poor fluid intake, rectal bleeding, rectal pain, vomiting, others Genitourinary: denies: burning, dysuria, flank pain, frequency, hematuria, incontinence, penile discharge, penile sore, pain, testicle pain, testicle swelling, urgency, others Neurological: denies: dizziness, fainting, headache, left sided numbness, left sided weakness, numbness, paresthesia, pre-existing deficit, right sided numbness, right sided weakness, seizure, speech problems, tingling, tremors, weakness, others Musculoskeletal: denies: back pain, gout, joint pain, joint swelling, muscle pain, muscle stiffness, neck pain, others Integumetry: denies: bruises, change in color, change in hair/nails, dryness, laceration, lesions, lumps, rash, wounds, others Allergic/Immunocompromised: denies: Difficulty Healing, Frequent Infections, Hives, Itching, others Hematologic/Lymphatic: denies: anemia, blood clots, easy bleeding, easy bruising, swollen glands, others Endocrine: denies: excessive hunger, excessive sweating, excessive thirst, excessive urination, flushing, intolerance to cold, intolerance to heat, unexplained weight gain, unexplained weight loss, others Psychiatric: denies: anxiety, bipolar disorder, depression, hopeless, panic disorder, schizophrenia, sleepless, suicidal, others All Other Systems: Reviewed and Negative Physical Exam General Appearance: No Apparent Distress, Normal HEENT: Normal ENT Inspection, Pharynx Normal, TMs Normal Neck: Full Range of Motion, Non-Tender, Normal, Normal Inspection Respiratory: Chest Non-Tender, Lungs Clear, No Accessory Muscle Use, No Respiratory Distress, Normal Breath Sounds Cardiovascular: No Edema, No JVD, No Murmur, No Gallop, Normal Peripheral Pulses, Regular Rate/Rhythm Breast Exam: Deferred Gastrointestinal: No Organomegaly, Non Tender, No Pulsatile Mass, Normal Bowel Sounds, Soft Genitalia: Deferred Pelvic: Deferred Rectal: Deferred Extremities: No calf tenderness, Normal capillary refill, Normal inspection, Normal range of motion, Non-tender, No pedal edema Musculoskeletal : Apperance: Normal Neurologic: Alert, solar energy engineer II-XII nml as Tested, No Motor Deficits, Normal Affect, Normal Mood, No Sensory Deficits Cerebellar Function: Normal Reflexes: Normal Skin: Dry, Normal Color, Warm Lymphatic: No Adenopathy Was a procedure done? Was a procedure done?: No Differential Dx Considerations may include: Asthma exacerbation, COPD, viral syndrome X-Ray, Labs, Meds, VS Vital Signs Date Time Temp Pulse Resp B/P (MAP) Pulse Ox O2 Delivery O2 Flow Rate FiO2 12/11/24 15:09 18 96 Room Air* 0 21 12/11/24 13:59 98.1 107 19 148/68 94 98.1 Current Medications Medications (Trade) Dose Ordered Sig/Joy Route Start Time Stop Time Status Last Admin Albuterol (Ventolin Medneb) 5 mg ONCE ONCE NEB 12/11/24 14:45 12/11/24 14:46 DC 12/11/24 15:09 Ipratropium [place] (Atrovent Medneb) 0.5 mg ONCE ONCE NEB 12/11/24 14:45 12/11/24 14:46 DC 12/11/24 15:09 Time of 1ST Reevaluation: 15:05 Reevaluation 1ST: Unchanged Patient Education/Counseling: Diagnosis, Treatment, Prognosis Family Education/Counseling: No Family Present SEPSIS Sepsis Screen Date sepsis recognized/suspect: Dec 11, 2024 Time Sepsis recognized/suspect: 1359 Recent Procedure: No On Antibiotic Therapy: No Respiratory Rate >20: No Heart Rate >90: Yes Temp<36 C (96.8 F) or >38.3 C: No SBP <90 or MAP <65 mmHG: No New Acute Mental Status Change: No Is the patient on CPAP, BIPAP,: No Physician Orders Chest Portable (12/11/24 14:32) Vital Signs Date Time Temp Pulse Resp B/P (MAP) Pulse Ox O2 Delivery O2 Flow Rate FiO2 12/11/24 15:09 18 96 Room Air* 0 21 12/11/24 13:59 98.1 107 19 148/68 94 98.1 Medications Medications Dose Ordered Sig/Joy Route Start Time Stop Time Status Last Admin Dose Admin Albuterol 5 mg ONCE ONCE NEB 12/11/24 14:45 12/11/24 14:46 DC 12/11/24 15:09 Ipratropium [place] 0.5 mg ONCE ONCE NEB 12/11/24 14:45 12/11/24 14:46 DC 12/11/24 15:09 Departure 1 Departure Time of Disposition: 17:00 (Patient likely with an asthma exacerbation. We will discharge patient home with outpatient follow up) Impression: Primary Impression: Asthma exacerbation Qualified Codes: J45.21 - Mild intermittent asthma with (acute) exacerbation Disposition: HOME / SELF CARE / HOMELESS Condition: Stable Additional Instructions: You likely had an asthma exacerbation. You should use your inhaler as directed. You were prescribed steroids. Please take as directed. It is important to follow up with the regular doctor within 1 week. If your symptoms worsen or you have any other concerns please return to the emergency room. e-Prescriptions Prednisone (Prednisone) 20 Mg Tab 40 MG PO DAILY for 5 Days, #10 MG Prov: BRIANNA STOCKTON MD 12/11/24 Albuterol Sulfate (VENTOLIN MDI) 90 Mcg Ih 90 MCG IN QID PRN for 7 Days, #1 INH Prov: BRIANNA STOCKTON MD 12/11/24 Discharged With: Self Critical Care Note Critical Care Time?: No Stability Stability form required: No I personally scribed for BRIANNA STOCKTON MD ([email or web address]) on 12/11/24 at 14:41. Electronically submitted by Brant Naik ([email or web address]). BRIANNA STOCKTON MD Dec 11, 2024 14:41
--- NOTE | 2024-12-11 15:01 | DVH ---
Chest x-ray Technique: AP portable Comparison: 04/14/2020 CLINICAL INDICATION: sob FINDINGS: Heart size is normal. No infiltrates or effusions. Mild scoliosis of the thoracic spine IMPRESSION: 1. No Acute cardiopulmonary pathology
[2024-12-11 15:09] VITALS: RESP 18; O2SAT 96
[2024-12-11] MEDS: ALBUTEROL SULF 2.5 MG/0.5ML(0.5%) NEB SOLN NEB ONE (15:09)
[2024-12-11] MEDS: IPRATROPIUM BROM 0.5 MG/2.5ML INH SOL NEB ONE (15:09)
[2024-12-11] MEDS ORDERED: ALBUAER3 IN (17:03)
[2024-12-11] MEDS ORDERED: PRED20TA2 PO (17:03)
== END 2024-12-11 18:26 | disposition home or self-care (01) ==
LOC: ER 13:57
DX: J45.901 Unspecified asthma with (acute) exacerbation (principal); F17.210 Nicotine dependence, cigarettes, uncomplicated; F19.90 Other psychoactive substance use, unspecified, uncomplicated; F10.90 Alcohol use, unspecified, uncomplicated; F41.9 Anxiety disorder, unspecified; F32.A Depression, unspecified; I10 Essential (primary) hypertension; Z79.899 Other long term (current) drug therapy; Y90.9 Presence of alcohol in blood, level not specified
CPT/HCPCS: 71045; 94640

== ENCOUNTER 2025-01-06 23:09 | Emergency (ER) | payer MEDICAID ==
[~2025-01-06] VITALS: Ht 185.4 cm; Wt 62.0 kg
[~2025-01-06 23:09] MED LIST changes: +ALBUAER3 IN; +PRED20TA2 PO
[2025-01-06 23:14] VITALS: BP 133/75; PULSE 98; TEMP 97.2
[2025-01-06] MEDS: predniSONE 20 MG TAB PO ONE (23:30)
--- NOTE | 2025-01-06 23:33 | ED.PDOC ---
SOB-HPI HPI Comments 29-year-old male who came to ER via EMS for shortness of breath. Patient does have history of asthma and polysubstance abuse. States he has ran out of his inhalers. For the past 2 hours he has been having shortness of breath, wheezing and chest tightness. On scene patient was saturating 90% on room air. Patient was given breathing treatments by paramedics, and saturation improved to 97% Chief Complaint: Shortness of Breath Time Seen by MD: 23:32 Primary Care Provider: UNKNOWN Reviewed notes: Steam Conditioner Filling Notes Information Source: Patient, Emergency Med Personnel Mode of Arrival: EMS Severity: Moderate Timing: Hours (2) Duration: Since onset Context: At Rest, With Light Exertion History of: Asthma Prehospital treatment: Breathing Tx, Oxygen Associated Signs and Symptoms: Wheeze, Cough Past Medical History PAST MEDICAL HISTORY: Anxiety, Asthma, Depression, HTN Surgical History: Denies all surgeries Family History Family History: Reviewed,noncontributory to illness, Unknown Social History Smoker: Cigarettes, Less Than 1 Pack/Day Alcohol: Occasionally Drugs: Marijuana, Methamphetamine Lives In: Home Constitutional: denies: chills, diaphoresis, fatigue, fever, malaise, sweats, weakness, others EENTM: denies: blurred vision, double vision, ear bleeding, ear discharge, ear drainage, ear pain, ear ringing, eye pain, eye redness, hearing loss, mouth pain, mouth swelling, nasal discharge, nose bleeding, nose congestion, nose pain, photophobia, tearing, throat pain, throat swelling, voice changes, others Respiratory: reports: cough, SOB at rest, shortness of breath, wheezing; denies: hemoptysis, orthopnea, SOB with excertion, stridor, others Cardiovascular: denies: chest pain, dizzy spells, diaphoresis, Dyspnea on exertion, edema, irregular heart beat, left arm pain, lightheadedness, palpitations, PND, syncope, others Gastrointestinal: denies: abdomen distended, abdominal pain, blood streaked bowels, constipated, diarrhea, dysphagia, difficulty swallowing, hematemesis, melena, nausea, poor appetite, poor fluid intake, rectal bleeding, rectal pain, vomiting, others Genitourinary: denies: burning, dysuria, flank pain, frequency, hematuria, incontinence, penile discharge, penile sore, pain, testicle pain, testicle swelling, urgency, others Neurological: denies: dizziness, fainting, headache, left sided numbness, left sided weakness, numbness, paresthesia, pre-existing deficit, right sided numbness, right sided weakness, seizure, speech problems, tingling, tremors, weakness, others Musculoskeletal: denies: back pain, gout, joint pain, joint swelling, muscle pain, muscle stiffness, neck pain, others Integumetry: denies: bruises, change in color, change in hair/nails, dryness, laceration, lesions, lumps, rash, wounds, others Allergic/Immunocompromised: denies: Difficulty Healing, Frequent Infections, Hives, Itching, others Hematologic/Lymphatic: denies: anemia, blood clots, easy bleeding, easy bruising, swollen glands, others Endocrine: denies: excessive hunger, excessive sweating, excessive thirst, excessive urination, flushing, intolerance to cold, intolerance to heat, unexplained weight gain, unexplained weight loss, others Psychiatric: denies: anxiety, bipolar disorder, depression, hopeless, panic disorder, schizophrenia, sleepless, suicidal, others Physical Exam General Appearance: No Apparent Distress, Normal HEENT: Normal ENT Inspection, Pharynx Normal, TMs Normal Neck: Full Range of Motion, Non-Tender, Normal, Normal Inspection Respiratory: Chest Non-Tender, Lungs Clear, No Accessory Muscle Use, No Respiratory Distress, Wheezing Cardiovascular: No Edema, No JVD, No Murmur, No Gallop, Normal Peripheral Pulses, Regular Rate/Rhythm Breast Exam: Deferred Gastrointestinal: No Organomegaly, Non Tender, No Pulsatile Mass, Normal Bowel Sounds, Soft Genitalia: Deferred Pelvic: Deferred Rectal: Deferred Extremities: No calf tenderness, Normal capillary refill, Normal inspection, Normal range of motion, Non-tender, No pedal edema Musculoskeletal : Apperance: Normal Neurologic: Alert, siebel developer II-XII nml as Tested, No Motor Deficits, Normal Affect, Normal Mood, No Sensory Deficits Cerebellar Function: Normal Reflexes: Normal Skin: Dry, Normal Color, Warm Lymphatic: No Adenopathy Was a procedure done? Was a procedure done?: No Differential Dx Differential Diagnosis: Asthma, Bronchitis, Pneumonia, Respiratory Distress X-Ray, Labs, Meds, VS Vital Signs Date Time Temp Pulse Resp B/P (MAP) Pulse Ox O2 Delivery O2 Flow Rate FiO2 01/07/25 00:29 18 97 Room Air* 0 21 01/07/25 00:17 18 97 Room Air* 0 21 01/06/25 23:21 Room Air* 0 21 01/06/25 23:14 97.2 98 18 133/75 97 97.2 Current Medications Medications (Trade) Dose Ordered Sig/Joy Route Start Time Stop Time Status Last Admin Albuterol (Ventolin Medneb) 5 mg ONCE ONCE NEB 01/06/25 23:30 01/06/25 23:31 DC 01/07/25 00:21 Prednisone 40 mg ONCE ONCE PO 01/06/25 23:30 01/06/25 23:31 DC 01/06/25 23:30 CHEST RADIOGRAPH Indication: SOB Technique: Single frontal view of the chest was obtained COMPARISON: XY CHEST PORTABLE on DOS: 12/11/24, CT ANGIO CHEST - PULMONARY on DOS: 08/22/23, XR CHEST 1 VIEW on DOS: 08/22/23, CHEST PORTABLE on DOS: 04/14/20, CHEST TWO VIEWS ROUTINE on DOS: 01/18/20 FINDINGS: Lungs and pleural spaces are clear. Cardiac silhouette and erin are within normal limits. Bones and soft tissues demonstrate no significant abnormality. IMPRESSION: No acute disease. Time of 1ST Reevaluation: 23:28 Reevaluation 1ST: Unchanged Patient Education/Counseling: Diagnosis, Treatment Family Education/Counseling: No Family Present SEPSIS Sepsis Screen Date sepsis recognized/suspect: Jan 06, 2025 Time Sepsis recognized/suspect: 2318 Recent Procedure: No On Antibiotic Therapy: No Respiratory Rate >20: No Heart Rate >90: No Temp<36 C (96.8 F) or >38.3 C: No SBP <90 or MAP <65 mmHG: No New Acute Mental Status Change: No Is the patient on CPAP, BIPAP,: No Physician Orders Chest Xray 1 View (01/06/25 23:22) Electrocardigram (01/06/25 23:22) Vital Signs Date Time Temp Pulse Resp B/P (MAP) Pulse Ox O2 Delivery O2 Flow Rate FiO2 01/07/25 00:29 18 97 Room Air* 0 21 01/07/25 00:17 18 97 Room Air* 0 21 01/06/25 23:21 Room Air* 0 21 01/06/25 23:14 97.2 98 18 133/75 97 97.2 Medications Medications Dose Ordered Sig/Joy Route Start Time Stop Time Status Last Admin Dose Admin Albuterol 5 mg ONCE ONCE NEB 01/06/25 23:30 01/06/25 23:31 DC 01/07/25 00:21 Prednisone 40 mg ONCE ONCE PO 01/06/25 23:30 01/06/25 23:31 DC 01/06/25 23:30 Departure 1 Departure Time of Disposition: 01:30 Impression: Primary Impression: Asthma exacerbation Disposition: HOME / SELF CARE / HOMELESS Condition: Stable e-Prescriptions Albuterol Sulfate (Albuterol Sulfate Hfa) 108 Mcg/Act Aer 108 MCG IN Q6HP PRN, #1 AER Prov: KATE BOWMAN MD 01/07/25 Discharged With: Self Critical Care Note Critical Care Time?: No Stability Stability form required: No Heart Score Heart Score: Heart Score Response (Comments) Value History N/A 0 EKG N/A 0 Age N/A 0 Risk Factors N/A 0 Troponin N/A 0 Total 0 I personally scribed for KATE BOWMAN MD ([email or web address]) on 01/06/25 at 23:33. Electronically submitted by Cristofer Centeno ([email or web address]). I personally scribed for KATE BOWMAN MD ([email or web address]) on 01/07/25 at 00:30. Electronically submitted by Cristofer Centeno ([email or web address]). KATE BOWMAN MD Jan 06, 2025 23:33
--- NOTE | 2025-01-06 23:58 | DVH ---
CHEST RADIOGRAPH Indication: SOB Technique: Single frontal view of the chest was obtained COMPARISON: XY CHEST PORTABLE on DOS: 12/11/24, CT ANGIO CHEST - PULMONARY on DOS: 08/22/23, XR CHEST 1 VIEW on DOS: 08/22/23, CHEST PORTABLE on DOS: 04/14/20, CHEST TWO VIEWS ROUTINE on DOS: 01/18/20 FINDINGS: Lungs and pleural spaces are clear. Cardiac silhouette and erin are within normal limits. Bones and s oft tissues demonstrate no significant abnormality. IMPRESSION: No acute disease.
[2025-01-07] MEDS: ALBUTEROL SULF 2.5 MG/0.5ML(0.5%) NEB SOLN NEB ONE (00:21)
[2025-01-07 00:29] VITALS: RESP 18; O2SAT 97
[2025-01-07] MEDS ORDERED: ALBU108A5 IN (00:42)
== END 2025-01-07 00:47 | disposition home or self-care (01) ==
LOC: ER 23:09 → EDBD 23:09 → EDUNIT# 23:09 → ER 01-07 00:47
DX: J45.901 Unspecified asthma with (acute) exacerbation (principal); I10 Essential (primary) hypertension; F17.210 Nicotine dependence, cigarettes, uncomplicated; F32.A Depression, unspecified
CPT/HCPCS: 71045; 94640; 99283; J7512